=== PATIENT | female | born 1950 | race Caucasian/White ===

== ENCOUNTER 2020-08-23 05:16 | Inpatient (IN) ==
--- NOTE | 2020-08-12 09:03 | PAT Medication Instructions ---
Medication Instructions Date of Service August 12, 2020 Home Medications C,E,zinc,copper [id number] [Ocuvite Adult 50 Plus] 1 cap PO QAM acetaminophen [Tylenol Arthritis] 1,300 mg PO QAM aspirin [Aspir-81] 81 mg PO QAM calcium carbonate-vitamin D3 [Calcium 500 + D] 1 tab PO QAM cetirizine [Zyrtec] 10 mg PO QAM citalopram [Celexa] 20 mg PO QAM diphenhydramine HCl [Benadryl] 25 mg PO HS fish oil-dha-epa 1,200 cap PO QAM gabapentin 300 mg PO BID lisinopril-hydrochlorothiazide 1 tab PO QAM meloxicam 15 mg PO QAM multivitamin 1 tab PO QAM vitamin E [Vitamin E D-Alpha] 400 unit PO QAM ASK your surgeon for instructions meloxicam 15 mg PO QAM STOP taking 2 weeks before surgery If surgery is within 2 weeks, stop taking as soon as possible. C,E,zinc,copper [id number] [Ocuvite Adult 50 Plus] 1 cap PO QAM fish oil-dha-epa 1,200 cap PO QAM vitamin E [Vitamin E D-Alpha] 400 unit PO QAM DO NOT take the morning of surgery calcium carbonate-vitamin D3 [Calcium 500 + D] 1 tab PO QAM cetirizine [Zyrtec] 10 mg PO QAM lisinopril-hydrochlorothiazide 1 tab PO QAM multivitamin 1 tab PO QAM Take morning of surgery With a small sip of water, OTHERWISE NOTHING TO EAT OR DRINK AFTER MIDNIGHT: acetaminophen [Tylenol Arthritis] 1,300 mg PO QAM (if needed, may be taken up to four hours before surgery) aspirin [Aspir-81] 81 mg PO QAM citalopram [Celexa] 20 mg PO QAM gabapentin 300 mg PO BID Take evening before surgery diphenhydramine HCl [Benadryl] 25 mg PO HS gabapentin 300 mg PO BID Other Notes If you have any questions please call us at [phone] or [phone] or [phone] or [phone]
--- NOTE | 2020-08-17 10:23 | Anesthesiology Consultation ---
Date of Service August 17, 2020 Assessment & Plan (1) Encounter for pre-operative examination: Chart Review Chart Review: Acceptable Risk for Surgery (pending surgeon ordered PCP clearance and preop Covid testing ) and Patient seen in Pre Admission Testing -Awaiting surgeon ordered PCP clearance Per PAT appointment 08/17/2020, patient resides in [facility]. Travels to [facility] for medical appts. Wears proper PPE. No known Covid infection in the past 90 days. No known Covid positive contacts or Covid related symptoms. Preop Covid testing done 08/17/20 at [facility] will await results. Educated on importance of self quarantining, social distancing and wearing mask in public both for the patient and household contacts. Pt has had both Covid 19 vaccines Right direct anterior CHAD 03/28/2016 = done under [facility] at L3-4 with 1 attempt. No anesthesia issues noted per anesthesia record. Teaching & Discussion Pre-Anesthesia Teaching/Discussion Notes: Instructed NPO after midnight before surgery,except medications with 15 cc of water. Medication instructions provided according to the PAT guidelines. History Surgery Operation Date: 08/23/20 11:10 Proposed Procedures p Left Posterior Total Hip Arthroplasty - Jonathan Quiñones, Height/Weight Height: 5 ft 2.5 in Weight: 108.4 kg Allergies Allergy/AdvReac Type Severity Reaction Status Date / Time No Known Allergies Allergy Verified 08/11/20 15:38 Medications Home Medications Medication Instructions Recorded Confirmed Last Taken C,E,zinc,copper [id number] 1 cap PO QAM 04/06/20 08/11/20 Unknown [Ocuvite Adult 50 Plus] acetaminophen [Tylenol Arthritis] 1,300 mg PO QAM 04/06/20 08/11/20 Unknown aspirin [Aspir-81] 81 mg PO QAM 04/06/20 08/11/20 Unknown calcium carbonate-vitamin D3 1 tab PO QAM 04/06/20 08/11/20 Unknown [Calcium 500 + D] cetirizine [Zyrtec] 10 mg PO QAM 04/06/20 08/11/20 Unknown citalopram [Celexa] 20 mg PO QAM 04/06/20 08/11/20 Unknown diphenhydramine HCl [Benadryl] 25 mg PO HS 04/06/20 08/11/20 Unknown fish oil-dha-epa 1,200 cap PO QAM 04/06/20 08/11/20 Unknown gabapentin 300 mg PO BID 04/06/20 08/11/20 Unknown lisinopril-hydrochlorothiazide 1 tab PO QAM 04/06/20 08/11/20 Unknown meloxicam 15 mg PO QAM 04/06/20 08/11/20 Unknown multivitamin 1 tab PO QAM 04/06/20 08/11/20 Unknown vitamin E [Vitamin E D-Alpha] 400 unit PO QAM 04/06/20 08/11/20 Unknown Past Medical History Medical History Anxiety Arthritis Depression History of COVID-19 04/13/21 [facility]. symptoms: loss of taste and smell. no hospitalization. Hypertension Migraine HX Sleep apnea CPAP HS Exercise / Class Metabolic Activity II 4-5 Yardwork/Stairs/Walk up hill (ONE FLIGHT OF STAIRS - NO CHEST PAIN OR SOB ) Past Family History Family History Mother Family history of diabetes mellitus Grandfather (Paternal) Family hx of colon cancer Other No family history of adverse response to anesthesia Past Surgical History Surgical History History of ankle surgery RIGHT CYST REMOVAL History of tonsillectomy History of tooth extraction History of total hip arthroplasty RIGHT History of total knee replacement R/L Past Anesthesia History No Hx of Anesthesia Complications (with exception to mild awareness during TKAs- no issues with most recent CHAD ) and No Family Hx of Anesthesia Complications History of PONV No Hx of PONV and No Hx of Motion Sickness Social History Smoking Status: Never smoker Do You Dip or Chew Tobacco: No Hx Alcohol Use: Yes Alcohol type: beer and other alcohol intake frequency: holidays/special occasions only Hx Substance Use: No substance use type: does not use Review of Systems Patient denies chest pain, shortness of breath, dyspnea on exertion, reflux, cough, wheezing, palpitations. No hx of seizures, stroke, [place]. No hx of blood clots or blood transfusions Physical Exam Vital Signs VITALS BP 145/80 P 81 TEMP 98.5 SP02 97% RESP 16 Constitutional no acute distress ENMT Mouth: no TMJ clicking Thyromental Distance: < 3.5 Finger Breadths (3.0) Mallampati Class: III Full upper dentures Missing lower molars Neck neck extension not limited Respiratory normal respiratory effort; no respiratory distress Auscultation: lungs clear to auscultation bilaterally; no wheezes Cardiovascular Rate/Rhythm: regular rate and regular rhythm Heart Sounds: no murmur (no significant murmur noted ) Vessels: no carotid bruit Musculoskeletal Spine: no pain with cervical ROM Extremities: extremities normal to inspection Psychiatric Orientation: alert Testing Laboratory Results 08/17/20 10:56 08/17/20 10:56 PT 10.2 Seconds (9.0-12.0) 08/17/20 10:56 INR 1.0 (0.9-1.1) 08/17/20 10:56 APTT 25.9 Seconds (21.0-31.0) 08/17/20 10:56 Hemoglobin A1c 5.7 % (4.5-5.6) H 08/17/20 10:56 Urine Color Yellow 08/17/20 Unknown Urine Appearance Clear (Clear) 08/17/20 Unknown Urine pH 7.5 (4.5-7.5) 08/17/20 Unknown Ur Specific [place] 1.009 (1.000-1.030) 08/17/20 Unknown Urine Protein Negative (Negative) 08/17/20 Unknown Urine Glucose (UA) Negative (Negative) 08/17/20 Unknown Urine Ketones Negative (Negative) 08/17/20 Unknown Urine Nitrite Negative (Negative) 08/17/20 Unknown Ur Leukocyte Esterase Negative (Negative) 08/17/20 Unknown Blood Type O Positive 08/17/20 10:56 Antibody Screen NEGATIVE 08/17/20 10:56 Electrocardiogram Date: 08/17/20 Findings: + NSR @ (81bpm) Normal EKG. Chest X-Ray Date: 08/09/20 Findings: + NAD Stable small linear scarlike density at the left lung base. Otherwise, lungs are clear.
--- NOTE | 2020-08-17 11:39 | XRay Report ---
XR chest Pre-admission PA/Lat HISTORY: Preop. COMPARISON: Chest 12/15/2013. FINDINGS: Cardiac silhouette is normal in size. No pleural effusions. No pneumothorax. Stable small l inear scarlike density at the left lung base. Otherwise, lungs are clear. IMPRESSION: No acute process. ACT 112: Negative or not required by law. Electronically signed by: Seymour Tejada M.D. 08/17/2020 11:38 AM
[2020-08-17 11:41] LABS: Basophils # (auto) 0.04 K/uL (0-0.2); Basophils % (auto) 0.5 %; Eosinophils % (auto) 1.2 %; Hematocrit (blood only) 35.2 % (37-47); Hemoglobin 11.6 g/dL (12.0-16.0); Lymphocytes % (auto) 20.7 %; Mean Platelet Volume 9.7 fL (7.4-10.4); Monocytes # (auto) 0.43 K/uL (0.11-0.59); Monocytes % (auto) 5.2 %; Neutrophils # (auto) 5.94 K/uL (1.4-6.5); Neutrophils % (auto) 72.4 %; Platelet Count 237 K/uL (130-400); RDW Coefficient of Variation 13.4 % (11.5-14.5); RDW Standard Deviation 43.5 fL (36.4-46.3); White Blood Count 8.21 K/uL (4.8-10.8)
[2020-08-17 11:45] LABS: Appearance Urine Clear (Clear); Bilirubin Urine Negative (Negative); Blood Urine Negative (Negative); Color Urine Yellow; Glucose Urine UA Negative (Negative); Ketones Urine Negative (Negative); Leukocyte Esterase Urine Negative (Negative); Nitrite Urine Negative (Negative); Protein Urine Negative (Negative); Specific Gravity Urine 1.009 (1.000-1.030); Urobilinogen Urine Negative (Negative); pH Urine 7.5 (4.5-7.5)
[2020-08-17 11:52] LABS: Partial Thromboplastin Time 25.9 Seconds (21.0-31.0); Prothrombin Time 10.2 Seconds (9.0-12.0)
[2020-08-17 12:10] LABS: Albumin Level 3.5 gm/dl (3.4-5.0); BUN Creatinine Ratio 16.6 (10-20); Calcium 10.1 mg/dl (8.5-10.1); Creatinine Clr Calc Pharmacy 76.7 ml/min; Est GFR (African American) 85.9; Est GFR (Non-African American) 74.1; Potassium 4.1 mmol/L (3.5-5.1)
[2020-08-17 12:36] LABS: Estimated Average Glucose 117 mg/dl; Hemoglobin A1C 5.7 % (4.5-5.6)
--- NOTE | 2020-08-18 06:17 | Electrocardiogram Report ---
Test Reason : Blood Pressure : / mmHG Vent. Rate : 081 BPM Atrial Rate : 081 BPM P-R Int : 184 ms QRS Dur : 074 ms QT Int : 360 ms P-R-T Axes : 073 064 066 degrees QTc Int : 418 ms Normal sinus rhythm Normal ECG When compared with ECG of 09-MAR-2016 14:27, No significant change was found Confirmed by Calderon Tovar ([id number]) on 08/18/2020 6:16:50 AM Referred By: Jonathan Quiñones Confirmed By:Calderon Tovar
--- NOTE | 2020-08-21 21:09 | History & Physical Report ---
Date of Service August 23, 2020 Assessment & Plan (1) Degenerative joint disease of left hip: I have indicated the patient for left total hip replacement. The risks, benefits and complications of surgery were explained to the patient which include but not limited to infection, acute blood loss, DVT/PE, injury to nerves, vessels, bone, soft tissue, arthrofibrosis, chronic pain, failure of the prosthesis, hip dislocation, leg length discrepancy, need for additional surgery, cardiac and pulmonary events and . The patient wished to proceed with surgery and informed consent was obtained at this time. We will plan for 81mg BID post-operatively for DVT prophylaxis. Upon discharge the patient will be discharged home with home health services. Appropriate clearances by PCP were obtained. (2) Morbid obesity: History of Present Illness Chief Complaint: Left hip pain/DJD Primary Care Provider: Cheri Fuentes DO The patient is a 70 year old female who presents with complaints of severe left hip pain and DJD. The patient has failed outpatient conservative treatments to this point which included NSAIDs, IA steroid injection, home exercise/walking program. The patient's pain and limited function have progressed to the point where they severely hinder their activities of daily living and they no longer tolerate exercise programs. They are requesting to proceed with total hip replacement surgery. Allergies Allergy/AdvReac Type Severity Reaction Status Date / Time No Known Allergies Allergy Verified 08/23/20 05:44 Home Medications Medication Instructions Recorded Confirmed Type C,E,zinc,copper [id number] 1 cap PO QAM 04/06/20 08/23/20 History [Ocuvite Adult 50 Plus] acetaminophen [Tylenol Arthritis] 1,300 mg PO QAM 04/06/20 08/23/20 History aspirin [Aspir-81] 81 mg PO QAM 04/06/20 08/23/20 History calcium carbonate-vitamin D3 1 tab PO QAM 04/06/20 08/23/20 History [Calcium 500 + D] cetirizine [Zyrtec] 10 mg PO QAM 04/06/20 08/23/20 History citalopram [Celexa] 20 mg PO QAM 04/06/20 08/23/20 History diphenhydramine HCl [Benadryl] 25 mg PO HS 04/06/20 08/23/20 History fish oil-dha-epa 1,200 cap PO QAM 04/06/20 08/23/20 History gabapentin 300 mg PO BID 04/06/20 08/23/20 History lisinopril-hydrochlorothiazide 1 tab PO QAM 04/06/20 08/23/20 History meloxicam 15 mg PO QAM 04/06/20 08/23/20 History multivitamin 1 tab PO QAM 04/06/20 08/23/20 History vitamin E [Vitamin E D-Alpha] 400 unit PO QAM 04/06/20 08/23/20 History Past Med/Surg History Medical History Anxiety Arthritis Depression History of COVID-19 04/13/21 [facility]. symptoms: loss of taste and smell. no hospitalization. Hyperlipidemia Per records Hypertension Migraine HX Morbid obesity Sleep apnea CPAP HS Surgical History History of ankle surgery RIGHT CYST REMOVAL History of tonsillectomy History of tooth extraction History of total hip arthroplasty RIGHT History of total knee replacement R/L Family History Mother Family history of diabetes mellitus Grandfather (Paternal) Family hx of colon cancer Other No family history of adverse response to anesthesia Social History Smoking Status: Never smoker Second Hand Exposure: Yes (FATHER SMOKED); Do You Dip or Chew Tobacco: No; Tobacco Cessation Education Requested by Patient: No Hx Alcohol Use: Yes Alcohol type: beer and other Hx Substance Use: No Preferred Language: Hebrew Communication Ability: Effective Shift Manager Required: No Beliefs That Will Affect Care: None Current Living Situation: Spouse and Family Other Information That Helps Us Care for You: No Feels Safe at Home: Yes Safety Concerns: Feels Safe At This Time Assistive Devices: Cane, CPAP, Denture - Upper and Glasses Assistive Devices Comment: cane prn Review of Systems Review of Systems: All systems reviewed & are unremarkable except as noted in HPI & below Constitutional: as per Subjective / HPI Physical Exam Physical Exam: LLE NVSI +EHL/FHL/TA/GS SILT grossly, +2 DP pulse, compartments soft NT, limited painful ROM, antalgic gait. Constitutional: WD/WN, vitals as above Eyes: PERRL, conjunctivae normal, anicteric sclerae ENMT: external ear and nose normal, oropharynx normal Neck: trachea midline, no thyromegaly Respiratory: normal respiratory effort, lungs clear to auscultation Cardiovascular: RRR, no murmur, no edema Gastrointestinal (Abdomen): normal bowel sounds, soft, nontender, no hepatosplenomegaly Musculoskeletal: no cyanosis or clubbing, extremities motor strength 5/5 Skin: no rashes, warm and dry Neurologic: patellar DTR's 2+ bilat, sensation intact Psychiatric: A+Ox3, euthymic affect Lymphatic: no cervical or axillary lymphadenopathy Results & Data Results & Data ([facility]) Diagnostic Findings Multiple views of the hip demonstrates severe DJD with complete loss of the joint space. +osteophytes, +sclerosis, +subchondral cysts. Pre Admission Testing Addendum Laboratory Results 08/17/20 10:56 08/17/20 10:56 PT 10.2 Seconds (9.0-12.0) 08/17/20 10:56 INR 1.0 (0.9-1.1) 08/17/20 10:56 APTT 25.9 Seconds (21.0-31.0) 08/17/20 10:56 Hemoglobin A1c 5.7 % (4.5-5.6) H 08/17/20 10:56 Urine Color Yellow 08/17/20 Unknown Urine Appearance Clear (Clear) 08/17/20 Unknown Urine pH 7.5 (4.5-7.5) 08/17/20 Unknown Ur Specific [place] 1.009 (1.000-1.030) 08/17/20 Unknown Urine Protein Negative (Negative) 08/17/20 Unknown Urine Glucose (UA) Negative (Negative) 08/17/20 Unknown Urine Ketones Negative (Negative) 08/17/20 Unknown Urine Nitrite Negative (Negative) 08/17/20 Unknown Ur Leukocyte Esterase Negative (Negative) 08/17/20 Unknown Blood Type O Positive 08/17/20 10:56 Antibody Screen NEGATIVE 08/17/20 10:56 08/17/20 Unknown Urine Culture - Final Urine,Clean Catch More than three types of organisms present, all low counts mixed probable skin sejal. No further identifications or sensitivities to follow.
[2020-08-23] MEDS ORDERED: METOCLOPRAMIDE HCL 10 MG TABLET PO SCH (06:00)
[2020-08-23] MEDS ORDERED: TRANEXAMIC ACID 1,000 MG **IV Intra-op IV SCH (06:00)
[2020-08-23] MEDS ORDERED: FAMOTIDINE 20 MG TAB PO SCH (06:00)
[2020-08-23] MEDS ORDERED: ROPIVACAINE 0.5% HCL/PF 150 MG, BUPIVACAINE 0.75% MPF 20 ML, EPINEPHrine 30MG/30ML (OR ... INFIL SCH ×2 (06:00)
[2020-08-23] MEDS ORDERED: TRANEXAMIC ACID 1,000 MG **IV Pre-op IV SCH (06:00)
[2020-08-23] MEDS ORDERED: ACETAMINOPHEN 500 MG TAB PO SCH (06:00)
[2020-08-23] MEDS ORDERED: LR 500ML BOLUS, THEN 15ML/HR IV SCH (06:00)
[2020-08-23] MEDS ORDERED: ceFAZolin 2000MG 2,000 MG/15 ML SYR IV SCH (06:00)
[2020-08-23] MEDS ORDERED: dexAMETHasone 4 MG TAB PO SCH (06:00)
[2020-08-23] MEDS ORDERED: CeleBREX 200 MG CAP PO SCH ×2 (06:00→21:00)
[2020-08-23] MEDS ORDERED: fentaNYL citrate 100 MCG/2 ML VIAL ONE (06:24)
[2020-08-23] MEDS ORDERED: MIDAZOLAM HCL 1 MG/ML 2ML VIAL ONE ×2 (06:24)
[2020-08-23] MEDS ORDERED: SUCCINYLCHOLINE 100MG/5ML SYR IV ONE (06:28)
[2020-08-23] MEDS ORDERED: ORTHO JOINT ANESTHETIC ONE (06:39)
[2020-08-23] MEDS ORDERED: BACITRACIN INJ 50,000 UNIT VIAL ONE (06:39)
[2020-08-23] MEDS ORDERED: BUPIVACAINE 0.5 % 5 MG/1 ML PF 10ML VIAL ONE (06:44)
--- NOTE | 2020-08-23 06:45 | History & Physical Bridge Note ---
Date of Service August 23, 2020 History & Physical Bridge Note I have examined the patient, reviewed the History & Physical and in the interval since the performance of the History & Physical I have noted the following changes of clinical significance: no changes noted
[2020-08-23] MEDS ORDERED: HYDROmorphone INJ 1 MG/ML SYRINGE IV PRN (07:12)
[2020-08-23] MEDS ORDERED: fentaNYL citrate 100 MCG/2 ML VIAL IV PRN (07:12)
[2020-08-23] MEDS ORDERED: ATROPINE SULFATE 0.1 MG/ML 10ML SYR IV PRN (07:12)
[2020-08-23] MEDS ORDERED: LABETALOL HCL IV 5 MG/ML 20ML IV PRN (07:12)
[2020-08-23] MEDS ORDERED: PHENYLEPHRINE 100MCG/ML 5ML SYR IV PRN (07:12)
[2020-08-23] MEDS ORDERED: ONDANSETRON INJ 2 MG/ML 2 ML VIAL IV PRN ×2 (07:12→10:09)
[2020-08-23] MEDS ORDERED: ePHEDrine sulfate 50 MG/ML AMP IV PRN (07:12)
[2020-08-23] MEDS ORDERED: PROPOFOL IV EMULSION 10 MG/ML 20 ML VIAL IV ONE ×3 (07:24→08:02)
[2020-08-23] MEDS ORDERED: PHENYLEPHRINE HCL 10 MG/ML VIAL ONE (07:30)
--- NOTE | 2020-08-23 09:03 | Post Operative Brief Note ---
Immediate Post Op Note v1 Date of Surgery August 23, 2020 Pre & Post Diagnosis Operation Date: 08/23/20 07:00 Pre-Op Diagnosis: Unilateral Primary Osteoarthritis, Left Hip Post-Op Diagnosis: Unilateral Primary Osteoarthritis, Left Hip I identified the patient and participated in the time-out.: Yes Procedure Operation Date: 08/23/20 07:00 Actual Procedures p Left Posterior Total Hip Arthroplasty(Left) - Jonathan Quiñones DO Surgeon Jonathan Quiñones DO Oceanology Teacher Ruy Dunlap Estimated Blood Loss 170 Findings Consistent with Post-Op Diagnosis Fluids see anesthesia report Specimens femoral head Anesthesia Type Spinal MAC Complications none Disposition Disposition: Recovery Room Overlapping Procedure I was present for: the critical portions of procedure. I was immediately available: during the entire case. Back up surgeon: was not required during procedure.
--- NOTE | 2020-08-23 09:06 | Operative Report ---
Post Operative Report Pre & Post Diagnosis Operation Date: 08/23/20 07:00 Pre-Op Diagnosis: Unilateral Primary Osteoarthritis, Left Hip Post-Op Diagnosis: Unilateral Primary Osteoarthritis, Left Hip I identified the patient and participated in the time-out.: Yes Procedure Operation Date: 08/23/20 07:00 Actual Procedures p Left Posterior Total Hip Arthroplasty(Left) - Jonathan Quiñones DO Surgeon Jonathan Quiñones DO Physician Relations Representative Ruy Dunlap Estimated Blood Loss 170 Findings Consistent with Post-Op Diagnosis Specimens femoral head Anesthesia Type Spinal MAC Complications none Disposition Disposition: Recovery Room Indications The patient is a 70-year-old female who presents with severe progressive left hip DJD who has failed outpatient conservative treatments. I indicated the patient for a total hip replacement and the risks and benefits were explained in detail which included but not limited to infection, bleeding, blood clot, damage to surrounding bone, nerves, vessels, soft tissue, hip dislocation, failure of the prosthesis, leg length discrepancy, need for additional surgery and . The patient agreed to proceed with replacement of the hip and informed consent was obtained. Appropriate clearances were obtained. Description of Procedure COMPONENTS USED: [employer] hip system: Acetabulum size 50 G7 osteo-Ti, femur size 13.5 standard offset, femoral head 36-3.5, liner 50x36 high wall, acetabular screws measuring 25 mm and 30 mm. Following induction of adequate spinal anesthesia, the patient was transferred to the OR table and placed in lateral decubitus position with right hip down. The left hip was prepped and draped in the typical sterile fashion. A timeout was performed, patient identified and site chris confirmed. Appropriate a ntibiotics were given. A standard posterolateral/Pierre-Langenbeck incision was made. Subcutaneous tissue was sharply dissected. Electrocautery was utilized for hemostasis. The fascia was incised throughout the length of the wound and retracted with the Charnley retractor. The bursa was taken down and the short external rotators were identified. The piriformis was tagged with #1 Vicryl. The short external rotators and capsule were divided from the posterior aspect of the femur using electrocautery. The posterior capsule was tagged with #1 Vicryl. Both external rotators and posterior capsule were swept posterior and protected, along with protecting the sciatic nerve. The hip was dislocated by flexion and internally rotation in a controlled manner and exposure of the femoral neck was gained with an old-style Hohmann and a blunt cobra retractor. A femoral cutting guide was utilized for making the appropriate level femoral neck cut with reciprocating saw. The femoral head was removed, measured and reserved on the back table. Next, attention was turned to the acetabulum. A posterior and anterior offset retractor was placed to gain adequate exposure. Acetabular labrum as well as posterior capsule elements were removed using electrocautery and forceps. Fovea centralis was cleared of all soft tissue. Sequential reaming was performed starting at 44 mm and carried up to a 49 mm and decision was made to proceed with impaction of a 50 mm G7 Osteo-Ti cup. This was impacted and held using a single 25 mm and 30 mm acetabular screws. The trial acetabular liner was placed at this time. Next, attention was turned to the proximal femur where a Bovie and pickup was used to further clear short external rotators from their insertion on the femur. Box osteotome and canal finder was used to gain access to the femoral canal and the lateral reamer on power was used to further open the proximal lateral canal. Sequentially rasping was carried up to a 13.5 which gave good fit and fill of the proximal femur. A trial reduction was carried out with a 13.5 standard offset femoral neck component a 36-3.5 mm femoral head. The trial reduction was stable in all degrees of rotation with no [id number] impingement. The hip was dislocated, trial components were removed and access to the acetabulum was re-established. The trial liner was removed and the cup was irrigated to ensure all debris was removed. The final acetabular liner was inserted and properly seated in the cup. Access to the femur was once more gained and the size 13.5 femoral stem with standard offset was impacted into position. The hip was once more assessed with the 36-3.5 mm femoral head. Stability was accessed and found to be excellent with equal leg lengths. The hip was dislocated for the last time and the final 36-3.5 ceramic femoral head was impacted in place and the hip was reduced. Range of motion was checked once again and found to be stable. A Betadine soak was performed. After 3 minutes, the hip was once more irrigated with copious sterile saline solution with bacitracin. The kacie-incisional soft tissue was injected utilizing [place] ortho mix which includes a combination of Ropivicaine 0.5% 150mg, Bupivicaine 0.5%/Epinephrine 1:200,000 30ml, Toradol 30mg, Dexamethasone 4mg, Ketamine 10mg, Clonidine 100mcg and NSS 30ml Orthomix solution. The piriformis, external rotators and capsule were repaired to the greater trochanter through bone tunnels using #5 FiberWire. The fascia was closed using #1 Vicryl, subcutaneous tissue was closed using 2-0 Vicryl, and skin was closed with vale and a sterile dry dressing was applied which included sam incisional VAC. The patient tolerated the procedure well and was transported to PACU in stable condition. Due to the complex nature of the procedure, the entire surgery was performed with the operational assistance of Ruy Dunlap PA-C. The public aid eligibility assistant, under direct supervision, was involved in the actual performance of all aspects of the surgical procedure including patient positioning, hemostasis, tissue retraction, instrument management and wound closure. I attest to the content of the Intraoperative Record and any orders documented therein. Any exceptions are noted below.
--- NOTE | 2020-08-23 09:50 | Anesthesiology Progress Note ---
Date of Service August 23, 2020 Anesthesia Post Procedure Vital Signs Vital Signs: Temp Pulse Pulse Resp BP Pulse Ox 08/23/20 09:45 86 16 120/71 96 08/23/20 09:35 88 19 124/71 96 08/23/20 09:25 36.8 C 92 H 14 138/63 96 08/23/20 05:49 36.9 C 93 H 16 168/103 H 98 Transfer of Care Handoff Completed per policy Notes Mental Status: alert / awake / arousable Patient Amnestic to Procedure: Yes Nausea / Vomiting: adequately controlled Pain: adequately controlled Airway Patency, RR, SpO2: stable & adequate BP & HR: stable & adequate Hydration State: stable & adequate Anesthetic Complications: no major complications apparent and Pt Satisfied with anesthetic care
--- NOTE | 2020-08-23 09:51 | Anesthesiology Progress Note ---
Date of Service August 23, 2020 Anesthesia Post Procedure Vital Signs Vital Signs: Temp Pulse Pulse Resp BP Pulse Ox 08/23/20 09:45 86 16 120/71 96 08/23/20 09:35 88 19 124/71 96 08/23/20 09:25 36.8 C 92 H 14 138/63 96 08/23/20 05:49 36.9 C 93 H 16 168/103 H 98 Transfer of Care Handoff Completed per policy Notes Mental Status: alert / awake / arousable Patient Amnestic to Procedure: Yes Nausea / Vomiting: adequately controlled Pain: adequately controlled Airway Patency, RR, SpO2: stable & adequate BP & HR: stable & adequate Hydration State: stable & adequate Neuraxial Anesthesia: was administered and sensory block is resolving Anesthetic Complications: no major complications apparent and Pt Satisfied with anesthetic care
--- NOTE | 2020-08-23 09:57 | XRay Report ---
AP PELVIS, CROSSTABLE LATERAL LEFT HIP History: Left total hip arthroplasty. Degenerative arthritis. Postop. FINDINGS: The patient is status post a left total hip arthroplasty. The hardware is intact. No fractu re or dislocation. Skin vale are in place. Evidence for prior right total hip arthroplasty. IMPRESSION: Left total hip arthroplasty. No evidence for hardware complication. ACT 112: Negative or not required by law. Electronically signed by: Seymour Tejada M.D. 08/23/2020 9:56 AM
[2020-08-23] MEDS ORDERED: HYDROmorphone INJ 0.5 MG/0.5 ML SYR IV PRN (10:09)
[2020-08-23] MEDS ORDERED: MAGNESIUM HYDROXIDE SUSP 30 ML UDC PO PRN (10:09)
[2020-08-23] MEDS ORDERED: NALOXONE HCL 0.4 MG/1 ML VIAL/CARP IV PRN (10:09)
[2020-08-23] MEDS ORDERED: METOCLOPRAMIDE HCL INJ 5 MG/ML 2 ML VIAL IV PRN (10:09)
[2020-08-23] MEDS ORDERED: diphenhydrAMINE Capsule 25 MG CAP PO PRN (10:09)
[2020-08-23] MEDS ORDERED: bisacodyL 10 MG SUPP PR PRN (10:09)
[2020-08-23] MEDS ORDERED: PNEUMOCOCCAL ADMINISTRATION CHARGE ONE (10:14)
[2020-08-23] MEDS ORDERED: PNEUMOCOCCAL POLYSACCHARIDES 25 MCG/0.5 ML VIAL/SYR IM ONE (10:14)
[2020-08-23] MEDS: KETOROLAC TROMETHAMINE 15 MG/ML VIAL IV SCH ×3 (11:46→22:29)
[2020-08-23] MEDS: ACETAMINOPHEN 500 MG TAB PO SCH ×2 (14:16→22:27)
[2020-08-23] MEDS: SODIUM CHLORIDE 0.9% 1000ML 1,000 ML IV SCH ×2 (15:31→18:35)
[2020-08-23] MEDS: ceFAZolin 2000MG 2,000 MG/15 ML SYR IV SCH ×2 (15:59→22:27)
--- NOTE | 2020-08-23 16:59 | Orthopedic Progress Note ---
Date of Service August 23, 2020 Assessment & Plan (1) Degenerative joint disease of left hip: Status post left total hip arthroplasty Ancef x24 DVT prophylaxis: SCDs, teds, 81 mg ASA twice daily Weight-bear as tolerates left lower extremity PT/OT Postoperative x-ray demonstrates well aligned well fixed prosthesis without fracture or dislocation A.m. labs DC planning (2) Morbid obesity: Admission and Anticipated Discharge Date Admission Date: August 23, 2020 Subjective Post Operative Progress Note Patient seen sitting up in bed, comfortable, denies complaints, pain well controlled, no acute issues. Review of Systems Review of Systems: All systems reviewed & are unremarkable except as noted in HPI & below Constitutional: as per Subjective / HPI Physical Exam Physical Exam: LLE NVSI +EHL/FHL/TA/GS SILT grossly, +2 DP pulse, compartments soft NT, dressing cdi. Constitutional: WD/WN, vitals as above Results & Data ([place]) Vital Signs (Past 12 Hours) Vital Signs Temp Pulse Pulse Resp BP BP Pulse Ox 08/23/20 14:00 36.7 C 81 16 134/74 95 08/23/20 13:39 36.6 C 83 16 155/69 H 97 08/23/20 12:20 88 16 165/72 H 98 08/23/20 11:51 36.6 C 82 16 135/78 99 08/23/20 10:35 77 16 120/78 96 08/23/20 10:05 36.5 C 86 18 146/75 H 97 08/23/20 09:55 36.6 C 85 15 136/66 96 08/23/20 09:45 86 16 120/71 96 08/23/20 09:35 88 19 124/71 96 08/23/20 09:25 36.8 C 92 H 14 138/63 96 08/23/20 05:49 36.9 C 93 H 16 168/103 H 98
[2020-08-23] MEDS ORDERED: SENNA 8.6 MG TAB PO SCH (21:00)
[2020-08-23] MEDS: GABAPENTIN 300 MG CAP PO SCH (22:28)
[2020-08-23] MEDS: DOCUSATE SODIUM 100 MG CAP PO SCH (22:29)
[2020-08-24] MEDS: KETOROLAC TROMETHAMINE 15 MG/ML VIAL IV SCH (05:46)
[2020-08-24] MEDS: ACETAMINOPHEN 500 MG TAB PO SCH ×2 (05:47→15:12)
[2020-08-24 07:13] LABS: Basophils # (auto) 0.01 K/uL (0-0.2); Basophils % (auto) 0.1 %; Hematocrit (blood only) 33.8 % (37-47); Hemoglobin 11.3 g/dL (12.0-16.0); Immature Granulocytes # (auto) 0.02 K/uL (0.00-0.02); Immature Granulocytes % (auto) 0.1 %; Lymphocytes # (auto) 1.85 K/uL (1.2-3.4); Lymphocytes % (auto) 12.5 %; Mean Corpuscular Hgb Conc 33.4 g/dL (32-36); Mean Corpuscular Volume 86.9 fL (80-100); Mean Platelet Volume 9.9 fL (7.4-10.4); Monocytes % (auto) 7.4 %; Neutrophils # (auto) 11.82 K/uL (1.4-6.5); Neutrophils % (auto) 79.9 %; Platelet Count 278 K/uL (130-400); RDW Coefficient of Variation 13.4 % (11.5-14.5); RDW Standard Deviation 42.9 fL (36.4-46.3); Red Blood Count 3.89 M/uL (4.2-5.4)
[2020-08-24 08:00] LABS: BUN Creatinine Ratio 22.2 (10-20); Calcium 9.2 mg/dl (8.5-10.1); Creatinine Clr Calc Pharmacy 65.9 ml/min; Est GFR (African American) 73.6; Est GFR (Non-African American) 63.5; Potassium 3.6 mmol/L (3.5-5.1)
[2020-08-24] MEDS: oxyCODONE HCL IR 5 MG TAB (IMMEDIATE RELEASE) PO PRN ×2 (08:24→15:11)
[2020-08-24] MEDS: GABAPENTIN 300 MG CAP PO SCH (08:24)
[2020-08-24] MEDS: DOCUSATE SODIUM 100 MG CAP PO SCH (08:25)
[2020-08-24] MEDS ORDERED: MULTIVITAMIN TAB PO SCH (09:00)
[2020-08-24] MEDS ORDERED: LISINOPRIL/HCTZ 20/25MG 1 TAB PO SCH (09:00)
[2020-08-24] MEDS ORDERED: CITALOPRAM 20 MG TAB PO SCH (09:00)
[2020-08-24] MEDS ORDERED: ASPIRIN 81 MG ECTAB PO SCH (09:00)
[2020-08-24] MEDS ORDERED: CeleBREX 200 MG CAP PO SCH (09:00)
--- NOTE | 2020-08-24 09:09 | Orthopedic Progress Note ---
Date of Service August 24, 2020 Assessment & Plan (1) Degenerative joint disease of left hip: Status post left total hip arthroplasty POD#1 Ancef x24 DVT prophylaxis: SCDs, teds, 81 mg ASA twice daily Weight-bear as tolerates left lower extremity PT/OT Postoperative x-ray demonstrates well aligned well fixed prosthesis without fracture or dislocation A.m. labs - as above, hgb 11.3 DC planning - home with HH (2) Morbid obesity: Admission and Anticipated Discharge Date Admission Date: August 23, 2020 Subjective Post Operative Progress Note Patient seen sitting in chair at bedside, comfortable, denies complaints, pain well controlled, no acute issues. Denies F/C/N/V/SOB/CP. Review of Systems Review of Systems: All systems reviewed & are unremarkable except as noted in HPI & below Constitutional: as per Subjective / HPI Physical Exam Physical Exam: LLE NVSI +EHL/FHL/TA/GS SILT grossly, +2 DP pulse, compartments soft NT, dressing cdi. Constitutional: WD/WN, vitals as above Results & Data ([facility]) Vital Signs (Past 12 Hours) Vital Signs Temp Pulse Resp BP BP Pulse Ox 08/24/20 07:16 36.7 C 73 16 142/80 H 99 08/24/20 02:46 36.6 C 87 16 162/78 H 99 08/23/20 23:10 36.8 C 80 16 133/77 96 Laboratory Results 08/24/20 08/24/20 Range/Units 06:15 06:15 WBC 14.80 H (4.8-10.8) K/uL RBC 3.89 L (4.2-5.4) M/uL Hgb 11.3 L (12.0-16.0) g/dL Hct 33.8 L (37-47) % MCV 86.9 (80-100) fL MCH 29.0 (25-34) pg MCHC 33.4 (32-36) g/dL RDW Std Deviation 42.9 (36.4-46.3) fL RDW Coeff of Isa 13.4 (11.5-14.5) % Plt Count 278 (130-400) K/uL MPV 9.9 (7.4-10.4) fL Immature Gran % (Auto) 0.1 % Neut % (Auto) 79.9 % Lymph % (Auto) 12.5 % [place] % (Auto) 7.4 % Eos % (Auto) 0.0 % Baso % (Auto) 0.1 % Neut # (Auto) 11.82 H (1.4-6.5) K/uL Lymph # (Auto) 1.85 (1.2-3.4) K/uL [place] # (Auto) 1.10 H (0.11-0.59) K/uL Eos # (Auto) 0.00 (0-0.5) K/uL Baso # (Auto) 0.01 (0-0.2) K/uL Immature Gran # (Auto) 0.02 (0.00-0.02) K/uL Sodium 138 (136-145) mmol/L Potassium 3.6 (3.5-5.1) mmol/L Chloride 105 (98-107) mmol/L Carbon Dioxide 26 (21-32) mmol/L Anion Gap 7.0 (3-11) BUN 21 H (7-18) mg/dl Creatinine 0.92 (0.6-1.2) mg/dl Est Cr Clr Drug Dosing 65.9 ml/min Est GFR ( Amer) 73.6 Est GFR (Non-Af Amer) 63.5 BUN/Creatinine Ratio 22.2 H (10-20) Glucose 106 H (70-99) mg/dl Calcium 9.2 (8.5-10.1) mg/dl
--- NOTE | 2020-08-24 17:16 | Discharge Summary ---
Date of Service August 24, 2020 Admission HPI Per Admitting Provider The patient is a 70 year old female who presents with complaints of severe left hip pain and DJD. The patient has failed outpatient conservative treatments to this point which included NSAIDs, IA steroid injection, home exercise/walking program. The patient's pain and limited function have progressed to the point where they severely hinder their activities of daily living and they no longer tolerate exercise programs. They are requesting to proceed with total hip replacement surgery. Principal Diagnosis Left total hip replacement -Left hip DJD Discharge Exam LLE NVSI +EHL/FHL/TA/GS SILT grossly, +2 DP pulse, compartments soft NT, dressing cdi. Constitutional WD/WN, vitals as above Discharge Data Allergies Allergy/AdvReac Type Severity Reaction Status Date / Time No Known Allergies Allergy Verified 08/23/20 05:44 Procedures Performed Operation Date: 08/23/20 07:00 Actual Procedures p Left Posterior Total Hip Arthroplasty(Left) - Jonathan Quiñones DO Hospital Course (1) Degenerative joint disease of left hip: The patient is a 70 -year-old female who presents with long standing history of severe left hip DJD and failed outpatient conservative treatments. The patient's symptoms have progressed to the point where it has been difficult to perform even normal activities of daily living. I indicated the patient for a left total hip arthroplasty, the risks, benefits and complications of the procedure include but not limited to infection, bleeding, damage to bone, nerves, vessels, surrounding soft tissue, may develop blood clots, loss of function, leg length discrepancy, dislocation, failure of the components, loosening of the components, the need for additional surgery and . The patient wished to proceed with surgery at this time and informed consent was obtained. Hospital Course: On 08/23/20 the patient was taken to the operating room, adequate anesthesia administered and underwent a left total hip arthroplasty. The patient tolerated the procedure well and was taken to the PACU in stable condition. Post- operatively the patient was started on a DVT ppx medication and given appropriate IV antibiotics. Consults were placed to physical therapy, occupational therapy and case management. On POD#1, the patient did well overnight and their pain was well controlled. Labs were drawn and the Hgb was 11.3. The patient progressed well with PT. The patients hospital stay was relatively uneventful and they were deemed stable by the orthopedic team and consultants to be discharged home with on 08/24/20. Discharge Instructions: Upon discharge the patient may weight bear as tolerates through their operative extremity. They were instructed to keep the incision clean and dry at all times. The patient may shower but should not submerge the incision, avoid bathing, pools and hot tubs. The patient was given a script for pain medication and should take as instructed. The patient was given a script for DVT ppx [ ] and should take as directed. The patient was instructed to not drive or travel for long distances until cleared to do so. If the patient develops any symptoms of fevers, chills, nausea, vomiting, increased redness, swelling, pain or drainage from the surgical site, they should notify the office and/or proceed to the nearest emergency room. The patient should follow up in 10-14 days after surgery for their routine post-operative follow-up appointment and should call the office, to confirm the date and time. Status post left total hip arthroplasty POD#1 Ancef x24 DVT prophylaxis: SCDs, teds, 81 mg ASA twice daily Weight-bear as tolerates left lower extremity PT/OT Postoperative x-ray demonstrates well aligned well fixed prosthesis without fracture or dislocation A.m. labs - as above, hgb 11.3 DC planning - home with HH (2) Morbid obesity: Total Time Total Time Spent Total Time Spent (In Minutes): 30 Discharge Plan Discharge Items Patient Disposition: Home - Home Health Services Reason For Visit: Unilateral Primary Osteoarthritis, Left Hip Discharge Diagnosis: Left total hip replacement Condition on Discharge: Good Activity: Per Instructions section Lifting: Wait until after follow-up appointment Bathing: Keep incision dry Bathing Comment: No bathing, pools or hot tubs. Sexual Activity: Wait until after follow-up appointment Exercise/Sports: Wait until after follow-up appointment Driving/Machine Use: No driving Weightbearing: Full weightbearing Non-emergency contact: Primary Care Provider and Surgeon Call non-emergency contact if: you have any medication questions, your symptoms worsen, your pain is not controlled, your pain is worsening, your pain is unusual for you, your pain is concerning for you, you have a fever, your temperature is above 101, your wound has increased redness, your wound has increased drainage and your wound pain has increased Follow-up/Referrals: Cheri Fuentes DO [Primary Care Provider] - Diet: Regular Addtl Attending Provider Instructions: ACTIVITY RECOMMENDATIONS: SELF CARE INSTRUCTIONS AFTER TOTAL HIP REPLACEMENT Until the incision and soft tissues around your hip have healed, there is a possibility that the hip prosthesis could dislocate. A. Observe the following precautions to prevent dislocation: 1. Don't bend your hip greater than 90 degrees. 2. Avoid crossing your legs or ankles while standing or lying. 3. Sit with your feet placed 6 inches apart. 4. When sitting, keep your knees below your hips. Sit on a firm surface, avoid deep, soft chairs and couches. Use an elevated toilet seat in the bathroom. 5. Don't bend over at the waist. Use a long handled shoehorn and a sock aid to help you put on your shoes and socks. A volunteer manager can help you pickle sorter objects that are too high or too low to reach. 6. Keep car riding to a minimum for at least one month after surgery. B. Your balance may be shaky for a while. Use crutches or a walker until directed by your doctor. C. Use hand rails when walking on stairs. D. Wear low heeled shoes with non-slip soles. E. Be sure that your floors are free of things that could trip you - throw rugs, electrical cords, small objects. Avoid wet and waxed floors, especially with crutches and canes. F. Try to walk several times a day with rest periods between. G. Continue with all the exercises taught to you in the hospital. Again, make walking a part of your daily routine. SPECIAL CARE INSTRUCTIONS: VERY IMPORTANT TO READ AND REVIEW A. You may still be at risk for phlebitis and blood clots. 1. Wear surgical stockings (JUDITH hose) for 2 weeks after surgery to improve circulation and reduce swelling. 2. Take Aspirin 81mg twice daily for 4 weeks or as directed by your doctor. This is your blood thinner. 3. High risk patients may be prescribed a stronger blood thinner if necessary. 4. If you are on Coumadin normally, your family doctor/zoo keeper should monitor your blood work. Expect a phone call the day of or the day after bloodwork is drawn to adjust your dosage. B. You must take antibiotics before having dental work, bladder, bowel and other surgery. Your doctor will provide you with a permanent card to carry describing precautions. C. Call [facility] if you have a fever, redness or swelling around the incision, cloudy drainage from incision, or sudden increase in pain in your hip, not relieved by your regular pain medication. D. Please call the office at if you have any concerns or questions about your operation or recovery. * YOU MAY SHOWER, NO TUB BATHS UNTIL CLEARED BY YOUR DOCTOR. * WEAR JUDITH HOSE 20 HOURS PER DAY FOR 2 WEEKS. * YOU SHOULD USE A WALKER OR CRUTCHES FOR 2-4 WEEKS. THIS WILL HELP PREVENT STRAIN ON YOUR HIP MUSCLE AND ALLOW IT TO HEAL PROPERLY. YOU MAY WEAN TO A CANE TOLERATED. * MOST PATIENTS WILL HAVE HOME NURSING FOR THERAPY. IF YOU DECIDE TO DO OUTPATIENT PHYSICAL THERAPY, PLEASE SCHEDULE THIS 3 TIMES PER WEEK. *ADAN incisional vac is a special dressing covering your incision. This dressing provides a sterile dry environment while you are healing. The dressing is to be left in place for 7 days post-operatively. Your home nurse or surgeon will remove. If you develop any redness or blisters or have any questions notify your surgeon immediately. FOLLOW UP VISIT: If appointment is not already scheduled: Please call [facility] to make a follow-up appointment for 2 weeks after your surgery at . Pending Studies at Discharge: No Stand-Alone Forms: My [facility], Opioid Pain Management, Smoking Cessation Medications and DC Order Prescriptions: New celecoxib [Celebrex] 200 mg Capsule 200 mg PO BID PRN (Reason: pain/inflammation) Qty: 28 RF: 0 aspirin 81 mg Tablet,Delayed Release (Dr/Ec) 81 mg PO BID Qty: 56 RF: 0 acetaminophen 500 mg Tablet 1,000 mg PO Q8 PRN (Reason: fever/pain) Qty: 90 RF: 0 oxycodone 5 mg Tablet 5 mg PO Q6H MDD 4 PRN (Reason: pain) Qty: 30 RF: 0 sennosides [Senokot] 8.6 mg Tablet 17.2 mg PO HS PRN (Reason: constipation) Qty: 28 RF: 0 Continued citalopram [Celexa] 20 mg Tablet 20 mg PO QAM RF: 0 calcium carbonate-vitamin D3 [Calcium 500 + D] 500 mg(1,250mg) -200 unit Tablet 1 tab PO QAM RF: 0 Zyrtec 10 mg Capsule 10 mg PO QAM RF: 0 multivitamin Tablet 1 tab PO QAM RF: 0 diphenhydramine HCl [Benadryl] 25 mg Capsule 25 mg PO HS RF: 0 lisinopril-hydrochlorothiazide 20-25 mg Tablet 1 tab PO QAM RF: 0 vitamin E 400 unit Capsule 400 unit PO QAM RF: 0 fish oil-dha-epa 1,200-144-216 mg Capsule 1,200 cap PO QAM RF: 0 Ocuvite Adult 50 Plus 250-5-1 mg Capsule 1 cap PO QAM RF: 0 gabapentin 300 mg Capsule 300 mg PO BID RF: 0 Discontinued aspirin [Aspir-81] 81 mg Tablet,Delayed Release (Dr/Ec) 81 mg PO QAM RF: 0 acetaminophen [Tylenol Arthritis] 650 mg Tablet Extended Release 1,300 mg PO QAM RF: 0 meloxicam 15 mg Tablet 15 mg PO QAM RF: 0 Discharge Orders: Discharge Order (Routine); Ordered 08/24/20 Ordered By: Jonathan Quiñones Admission Data Admit Date/Time: 08/23/20 09:27 Attending Provider: Jonathan Quiñones Admit Provider: Jonathan Quiñones Primary Care Provider: Cheri Fuentes Other Interventions: Discharge Summary Assessment (RN) Last Done: 08/24/20 15:15
== END 2020-08-24 15:45 | disposition home health service (06) | DRG 470 ==
LOC: ASU 05:16 → 3E 05:16 → OBSVTOIN 09:27

== ENCOUNTER 2020-08-28 12:07 | Observation (INO) ==
[2020-08-28] MEDS ORDERED: FAMOTIDINE 20MG/5ML IV PUSH IV STA (14:11)
[2020-08-28] MEDS ORDERED: METOCLOPRAMIDE HCL INJ 5 MG/ML 2 ML VIAL IV STA (14:11)
[2020-08-28] MEDS ORDERED: SODIUM CHLORIDE 0.9% 1000ML 1,000 ML IV ONE (14:11)
--- NOTE | 2020-08-28 14:17 | Emergency Department Note ---
Impression & Plan Acute upper abdominal pain, Elevated troponin, Abdominal bloating, Status post hip surgery ED Provider Note NAME: BEBE PAREDES AGE: 70 SEX: F : 1950 ARRIVES VIA: Walk-In INFORMANT: [Patient][family] ED PROVIDER(S): [Alexei House MD] CHIEF COMPLAINT: Abdominal pain HISTORY OF PRESENT ILLNESS: The patient is a 70-year-old female who presents to the ER with mild upper mid abdominal discomfort and bloating. She is belching a lot. Patient had left hip surgery done on Sunday, 5 days ago. She was discharged from the hospital on Sunday. Sunday evening, she began having bloating, she feels gassy. She has vomited a few times. She had a bowel movement 3 days ago. She has been passing gas since but no more bowel movements. The patient went to [facility] 3 days ago. She had a CT scan and lab work. She was told that she did not have an obstruction. She presents today because her symptoms are continuing. There has been no fever, no chest pain, no shortness of breath. She states that her left hip surgical site is doing well. She has minimal left hip pain. REVIEW OF SYSTEMS: See HPI for pertinent positives and negatives. A total of ten systems were reviewed and were otherwise negative. PMHx/PSHx: See Below SOCIAL HISTORY: See Below. PHYSICAL EXAM: GENERAL: Patient is in no acute distress. Belches quite a bit. HEENT: No acute trauma, normocephalic atraumatic, mucous membranes moist, no nasal congestion, no scleral icterus. NECK: No stridor, no adenopathy, no meningismus, trachea is midline. LUNGS: Clear to auscultation bilaterally, no wheeze, no rhonchi, breath sounds equal. HEART: Without murmurs gallops or rubs, regular rate and rhythm. ABDOMEN: Soft, nontender, bowel sounds positive, no hernias, no peritonitis. EXTREMITIES: No cyanosis or edema, full range of motion of all the joints without pain or difficulty, no signs for acute trauma. There is a wound VAC on the left hip surgical site, no significant erythema or drainage. NEUROLOGIC: Oriented x 3, no acute motor or sensory deficits, no focal weakness. SKIN: No rash, no jaundice, no diaphoresis. DIFFERENTIAL DIAGNOSIS: Appendicitis, ovarian cyst, ovarian torsion, ileus, infections, diverticulitis, UTI, obstruction, mesenteric ischemia, aortic pathology, inflammatory bowel disease, renal colic, PUD, pancreatitis, biliary pathology, hernia, volvulus, constipation, as well as other pathologies. EMERGENCY DEPARTMENT COURSE/PROCEDURES: ECG: Indication was abdominal pain. The ECG shows a normal sinus rhythm with a rate of 79. The QTc is 435. There is no ST elevation, no PVCs. Continuous Cardiac Monitoring: An order was placed for continuous cardiac mon itoring. The monitor shows a rate of 80 with normal sinus. MEDICAL DECISION MAKING: I was able to review the CT scan performed a few days ago at the outside hospital. This showed some stranding around the kidneys but otherwise, there was no bowel obstruction or acute surgical pathology. There was a mild leukocytosis which could be consistent with infection or the stress of her situation. There was no worrisome anemia. There was a normal platelet count. Potassium somewhat low at 3.2, no kidney failure. There were some subtle liver enzyme elevations. Cardiac enzyme testing x1 does show an elevation to the troponin, this could be consistent with cardiac injury or s train. ECG shows a sinus rhythm, no acute ischemia. No evidence for pancreatitis. Urinalysis did not show findings of infection. Covid and influenza testing returned negative. Abdominal series did not show any bowel obstruction, pneumonia or free air. Patient was given a 1 L IV saline bolus, she was given a dose of IV potassium. She received IV Reglan. She was given IV Pepcid. She was given oral aspirin. The patient presents with abdominal discomfort and belching. She feels bloated. Work-up does show an elevation to her cardiac troponin. Further cardiac work- up is indicated. I spoke to the patient and case management. The on-call hospitalist was consulted. Past Med/Surg History Medical History Anxiety Arthritis Depression History of COVID-19 04/13/21 [facility]. symptoms: loss of taste and smell. no hospitalization. Hyperlipidemia Per records Hypertension Migraine HX Morbid obesity Sleep apnea CPAP HS Surgical History (Updated 08/28/20 @ 22:00 by Alexei House MD) History of ankle surgery RIGHT CYST REMOVAL History of tonsillectomy History of tooth extraction History of total hip arthroplasty RIGHT History of total knee replacement R/L Family History Mother Family history of diabetes mellitus Grandfather (Paternal) Family hx of colon cancer Other No family history of adverse response to anesthesia Social History Smoking Status: Never smoker Second Hand Exposure: Yes (FATHER smoked); Tobacco Cessation Education Requested by Patient: No Hx Alcohol Use: Yes Alcohol type: beer and other Hx Substance Use: No Preferred Language: Kittitian Communication Ability: Effective Manager Athletics Required: No Beliefs That Will Affect Care: None marital status: Current Living Situation: Spouse and Family Other Information That Helps Us Care for You: No Feels Safe at Home: Yes Safety Concerns: Feels Safe At This Time Assistive Devices: Cane and Glasses Allergies Allergies Allergy/AdvReac Type Severity Reaction Status Date / Time No Known Allergies Allergy Verified 08/28/20 14:17 Home Meds Home Medications Medication Instructions Recorded Confirmed Ocuvite Adult 50 Plus 1 cap PO QAM 04/06/20 08/28/20 Zyrtec 10 mg PO QAM 04/06/20 08/28/20 calcium carbonate-vitamin D3 1 tab PO QAM 04/06/20 08/28/20 [Calcium 500 + D] citalopram [Celexa] 20 mg PO QAM 04/06/20 08/28/20 diphenhydramine HCl [Benadryl] 25 mg PO HS 04/06/20 08/28/20 fish oil-dha-epa 1,200 cap PO QAM 04/06/20 08/28/20 gabapentin 300 mg PO BID 04/06/20 08/28/20 lisinopril-hydrochlorothiazide 1 tab PO QAM 04/06/20 08/28/20 multivitamin 1 tab PO QAM 04/06/20 08/28/20 vitamin E 400 unit PO QAM 04/06/20 08/28/20 ondansetron 4 mg PO UD 08/28/20 08/28/20 promethazine 25 mg PO UD 08/28/20 08/28/20 Previous Rx's Medication Instructions Recorded acetaminophen 1,000 mg PO Q8 PRN #90 tab 08/23/20 aspirin 81 mg PO BID #56 tab 08/23/20 celecoxib [Celebrex] 200 mg PO BID PRN #28 cap 08/23/20 oxycodone 5 mg PO Q6H PRN #30 tab MDD 4 08/23/20 sennosides [Senokot] 17.2 mg PO HS PRN #28 tab 08/23/20 Results & Data (ED) Vital Signs Vital Signs - 24 hr 08/28/20 12:19 08/28/20 14:07 08/28/20 14:13 Temperature 37.0 C Temperature Source Temporal Artery Scan Pulse Rate 80 79 77 Pulse Rate [Left Finger] 80 Pulse Rate from SpO2 Sensor 79 78 Pulse Rhythm [Left Finger] Regular Pulse Strength [Left Finger] Normal Respiratory Rate 18 22 20 Respiratory Effort / Characteristics Non-Labored Respiratory Depth Normal Respiratory Pattern Regular Blood Pressure 172/84 H 181/86 H Blood Pressure [Right Arm] 181/86 H Blood Pressure Mean 113 117 Blood Pressure Mean [Right Arm] 117 Blood Pressure Position [Right Arm] Lying Pulse Oximetry 98 96 97 Oxygen Delivery Method Room Air Sepsis Recent Fever Within 48 Hours No Sepsis New/Unexplained Change in Mental Status No Sepsis Action Taken by Nursing No Action Required 08/28/20 14:30 08/28/20 15:42 08/28/20 15:44 Temperature Temperature Source Pulse Rate 85 81 Pulse Rate [Left Finger] Pulse Rate from SpO2 Sensor 86 81 Pulse Rhythm [Left Finger] Pulse Strength [Left Finger] Respiratory Rate 20 20 Respiratory Effort / Characteristics Respiratory Depth Respiratory Pattern Blood Pressure 162/73 H Blood Pressure [Right Arm] Blood Pressure Mean 102 Blood Pressure Mean [Right Arm] Blood Pressure Position [Right Arm] Pulse Oximetry 93 97 Oxygen Delivery Method Sepsis Recent Fever Within 48 Hours Sepsis New/Unexplained Change in Mental Status Sepsis Action Taken by Nursing 08/28/20 16:00 08/28/20 16:01 08/28/20 16:30 Temperature Temperature Source Pulse Rate 76 76 79 Pulse Rate [Left Finger] Pulse Rate from SpO2 Sensor 76 76 78 Pulse Rhythm [Left Finger] Pulse Strength [Left Finger] Respiratory Rate 16 21 17 Respiratory Effort / Characteristics Respiratory Depth Respiratory Pattern Blood Pressure 165/74 H 175/73 H Blood Pressure [Right Arm] Blood Pressure Mean 104 107 Blood Pressure Mean [Right Arm] Blood Pressure Position [Right Arm] Pulse Oximetry 96 98 97 Oxygen Delivery Method Sepsis Recent Fever Within 48 Hours Sepsis New/Unexplained Change in Mental Status Sepsis Action Taken by Nursing 08/28/20 16:31 Temperature Temperature Source Pulse Rate 77 Pulse Rate [Left Finger] Pulse Rate from SpO2 Sensor 77 Pulse Rhythm [Left Finger] Pulse Strength [Left Finger] Respiratory Rate 19 Respiratory Effort / Characteristics Respiratory Depth Respiratory Pattern Blood Pressure Blood Pressure [Right Arm] Blood Pressure Mean Blood Pressure Mean [Right Arm] Blood Pressure Position [Right Arm] Pulse Oximetry 97 Oxygen Delivery Method Sepsis Recent Fever Within 48 Hours Sepsis New/Unexplained Change in Mental Status Sepsis Action Taken by Snf Medications Current Medication List: was personally reviewed by me Laboratory Data Attestation: I reviewed the patient's lab results. Result diagrams: 08/28/20 14:18 08/28/20 14:18 Lab Results 08/28/20 08/28/20 08/28/20 Range/Units 14:18 14:18 15:45 WBC 13.26 H (4.8-10.8) K/uL RBC 3.82 L (4.2-5.4) M/uL Hgb 11.4 L (12.0-16.0) g/dL Hct 33.0 L (37-47) % MCV 86.4 (80-100) fL MCH 29.8 (25-34) pg MCHC 34.5 (32-36) g/dL RDW Std Deviation 43.4 (36.4-46.3) fL RDW Coeff of Isa 13.7 (11.5-14.5) % Plt Count 293 (130-400) K/uL MPV 9.0 (7.4-10.4) fL Immature Gran % (Auto) 0.3 % Neut % (Auto) 76.4 % Lymph % (Auto) 13.1 % [place] % (Auto) 10.1 % Eos % (Auto) 0.0 % Baso % (Auto) 0.1 % Neut # (Auto) 10.13 H (1.4-6.5) K/uL Lymph # (Auto) 1.74 (1.2-3.4) K/uL [place] # (Auto) 1.34 H (0.11-0.59) K/uL Eos # (Auto) 0.00 (0-0.5) K/uL Baso # (Auto) 0.01 (0-0.2) K/uL Immature Gran # (Auto) 0.04 H (0.00-0.02) K/uL Sodium 137 (136-145) mmol/L Potassium 3.2 L (3.5-5.1) mmol/L Chloride 102 (98-107) mmol/L Carbon Dioxide 30 (21-32) mmol/L Anion Gap 5.0 (3-11) BUN 17 (7-18) mg/dl Creatinine 0.71 (0.6-1.2) mg/dl Est Cr Clr Drug Dosing Not Reportable Est GFR ( Amer) 100.7 Est GFR (Non-Af Amer) 86.9 BUN/Creatinine Ratio 24.4 H (10-20) Glucose 111 H (70-99) mg/dl Calcium 9.3 (8.5-10.1) mg/dl Magnesium 2.4 (1.8-2.4) mg/dl Total Bilirubin 0.7 (0.2-1) mg/dl AST 66 H (15-37) U/L ALT 89 H (12-78) U/L Alkaline Phosphatase 92 (45-117) U/L Troponin I 0.060 H* (0-0.045) ng/ml Total Protein 7.7 (6.4-8.2) gm/dl Albumin 3.2 L (3.4-5.0) gm/dl Globulin 4.5 H (2.5-4.0) gm/dl Albumin/Globulin Ratio 0.7 L (0.9-2) Lipase 85 (73-393) U/L Urine Color Yellow Urine Appearance Clear (Clear) Urine pH 7.5 (4.5-7.5) Ur Specific [place] 1.019 (1.000-1.030) Urine Protein 1+ H (Negative) Urine Glucose (UA) Negative (Negative) Urine Ketones Trace H (Negative) Urine Blood 1+ H (Negative) Urine Nitrite Negative (Negative) Urine Bilirubin Negative (Negative) Urine Urobilinogen Negative (Negative) Ur Leukocyte Esterase Negative (Negative) Urine WBC (Auto) 1-5 (0-5) /hpf Urine RBC (Auto) 5-10 H (0-4) /hpf U Hyaline Cast (Auto) 1-5 (0-5) /lpf U Epithel Cells (Auto) 20-30 H (0-5) /lpf Urine Bacteria (Auto) Negative (Negative) COVID-19 Eval Order SARS-CoV-2 (PCR) (Negative) Influenza Type A (PCR) (Neg) Influenza Type B (PCR) (Neg) RSV (RT-PCR) (Neg) 08/28/20 08/28/20 Range/Units 16:20 16:20 WBC (4.8-10.8) K/uL RBC (4.2-5.4) M/uL Hgb (12.0-16.0) g/dL Hct (37-47) % MCV (80-100) fL MCH (25-34) pg MCHC (32-36) g/dL RDW Std Deviation (36.4-46.3) fL RDW Coeff of Isa (11.5-14.5) % Plt Count (130-400) K/uL MPV (7.4-10.4) fL Immature Gran % (Auto) % Neut % (Auto) % Lymph % (Auto) % [place] % (Auto) % Eos % (Auto) % Baso % (Auto) % Neut # (Auto) (1.4-6.5) K/uL Lymph # (Auto) (1.2-3.4) K/uL [place] # (Auto) (0.11-0.59) K/uL Eos # (Auto) (0-0.5) K/uL Baso # (Auto) (0-0.2) K/uL Immature Gran # (Auto) (0.00-0.02) K/uL Sodium (136-145) mmol/L Potassium (3.5-5.1) mmol/L Chloride (98-107) mmol/L Carbon Dioxide (21-32) mmol/L Anion Gap (3-11) BUN (7-18) mg/dl Creatinine (0.6-1.2) mg/dl Est Cr Clr Drug Dosing Est GFR ( Amer) Est GFR (Non-Af Amer) BUN/Creatinine Ratio (10-20) Glucose (70-99) mg/dl Calcium (8.5-10.1) mg/dl Magnesium (1.8-2.4) mg/dl Total Bilirubin (0.2-1) mg/dl AST (15-37) U/L ALT (12-78) U/L Alkaline Phosphatase (45-117) U/L Troponin I (0-0.045) ng/ml Total Protein (6.4-8.2) gm/dl Albumin (3.4-5.0) gm/dl Globulin (2.5-4.0) gm/dl Albumin/Globulin Ratio (0.9-2) Lipase (73-393) U/L Urine Color Urine Appearance (Clear) Urine pH (4.5-7.5) Ur Specific [place] (1.000-1.030) Urine Protein (Negative) Urine Glucose (UA) (Negative) Urine Ketones (Negative) Urine Blood (Negative) Urine Nitrite (Negative) Urine Bilirubin (Negative) Urine Urobilinogen (Negative) Ur Leukocyte Esterase (Negative) Urine WBC (Auto) (0-5) /hpf Urine RBC (Auto) (0-4) /hpf U Hyaline Cast (Auto) (0-5) /lpf U Epithel Cells (Auto) (0-5) /lpf Urine Bacteria (Auto) (Negative) COVID-19 Eval Order CovFluRsv at [facility] SARS-CoV-2 (PCR) NEGATIVE (Negative) Influenza Type A (PCR) Negative (Neg) Influenza Type B (PCR) Negative (Neg) RSV (RT-PCR) Negative (Neg) Administered Medications Aspirin (Aspirin 81 Mg Ectab) 81 mg PO BID [facility] Stop: 09/27/20 20:59 Last Admin: 08/28/20 20:52 Dose: 81 mg Documented by: [id number] Enoxaparin Sodium (Enoxaparin Inj 40 Mg/0.4 Ml Syr) 40 mg SQ Q24H [facility] Stop: 09/27/20 20:59 Last Admin: 08/28/20 20:54 Dose: 40 mg Documented by: [id number] Gabapentin (Gabapentin 300 Mg Cap) 300 mg PO BID [facility] Stop: 09/27/20 20:59 Last Admin: 08/28/20 20:54 Dose: 300 mg Documented by: [id number] Magnesium Sulfate/Dextrose (Magnesium Sulfate / D5w) 1 gm in 100 mls @ 50 mls/hr IV ONE ONE Stop: 08/28/20 21:59 Last Admin: 08/28/20 20:52 Dose: 50 mls/hr Documented by: [id number] Potassium Chloride (Potassium Chloride Crtab 20 Meq Tabcr) 20 meq PO BID [facility] Stop: 08/29/20 21:01 Last Admin: 08/28/20 20:53 Dose: 20 meq Documented by: [id number] Sennosides (Senna 8.6 Mg Tab) 17.2 mg PO HS [facility] Stop: 09/27/20 20:59 Last Admin: 08/28/20 20:55 Dose: 17.2 mg Documented by: [id number] Discontinued Medications Aspirin (Aspirin Chew 324 Mg) 324 mg PO NOW STA Stop: 08/28/20 15:24 Last Admin: 08/28/20 15:32 Dose: 324 mg Documented by: [id number] Famotidine (Famotidine 20mg/5ml Iv Push) 20 mg IV ONE STA Stop: 08/28/20 14:12 Last Admin: 08/28/20 14:23 Dose: 20 mg Documented by: [id number] Sodium Chloride (Nss 1000ml) 1,000 mls @ 999 mls/hr IV .Q1H1M ONE Stop: 08/28/20 15:11 Last Infusion: 08/28/20 15:32 Dose: 0 mls/hr Documented by: [id number] Admin: 08/28/20 14:18 Dose: 999 mls/hr Documented by: [id number] Potassium Chloride (K Valeriy / Wtr) 10 meq in 100 mls @ 100 mls/hr IV ONE ONE Stop: 08/28/20 16:48 Last Infusion: 08/28/20 19:06 Dose: 0 mls/hr Documented by: [id number] Admin: 08/28/20 16:17 Dose: 100 mls/hr Documented by: [id number] Metoclopramide HCl (Metoclopramide Hcl Inj 5 Mg/Ml 2 Ml Vial) 10 mg IV NOW STA Stop: 08/28/20 14:12 Last Admin: 08/28/20 14:23 Dose: 10 mg Documented by: [id number] Imaging Data Radiologist's Impression: CHEST AND ABDOMEN 2 VIEWS HISTORY: Generalized abdominal pain. Possible obstruction. COMPARISON: Chest 08/17/2020. FINDINGS: Mild diffuse interstitial thickening which is likely chronic. The heart is normal in size. No new focal lung consolidations to suggest pneumonia. No evidence for pulmonary edema. No pleural effusions. No pneumothorax. Multiple nondilated gas-filled loops of large and small bowel seen throughout the abdomen. No evidence for bowel obstruction. No pneumoperitoneum. No pneumatosis. There are bilateral total hip arthroplasties. There are surgical clips within the left lower quadrant. Degenerative changes within the lumbar spine. IMPRESSION: 1. No acute process within the chest. 2. No evidence for bowel obstruction. Discharge Plan Visit Data Chief Complaint: Abdominal Pain Stated Complaint: POST SURGERY CAUSING ABDOMINAL PAIN GAS ED Provider: Alexei House Discharge Problem: Acute upper abdominal pain, Elevated troponin, Abdominal bloating, Status post hip surgery Patient Disposition: Admitted As Inpatient Condition: Fair Discharge Instructions Interventions: ED Discharge Assessment Last Done: 08/28/20 18:44
[2020-08-28 14:39] LABS: Basophils # (auto) 0.01 K/uL (0-0.2); Basophils % (auto) 0.1 %; Hemoglobin 11.4 g/dL (12.0-16.0); Immature Granulocytes # (auto) 0.04 K/uL (0.00-0.02); Immature Granulocytes % (auto) 0.3 %; Lymphocytes # (auto) 1.74 K/uL (1.2-3.4); Lymphocytes % (auto) 13.1 %; Mean Corpuscular Hemoglobin 29.8 pg (25-34); Mean Corpuscular Hgb Conc 34.5 g/dL (32-36); Mean Corpuscular Volume 86.4 fL (80-100); Monocytes # (auto) 1.34 K/uL (0.11-0.59); Monocytes % (auto) 10.1 %; Neutrophils # (auto) 10.13 K/uL (1.4-6.5); Neutrophils % (auto) 76.4 %; Platelet Count 293 K/uL (130-400); RDW Coefficient of Variation 13.7 % (11.5-14.5); RDW Standard Deviation 43.4 fL (36.4-46.3); Red Blood Count 3.82 M/uL (4.2-5.4); White Blood Count 13.26 K/uL (4.8-10.8)
[2020-08-28 14:56] LABS: Alanine Aminotransferase 89 U/L (12-78); Albumin Level 3.2 gm/dl (3.4-5.0); Aspartate Aminotransferase 66 U/L (15-37); BUN Creatinine Ratio 24.4 (10-20); Blood Urea Nitrogen 17 mg/dl (7-18); Calcium 9.3 mg/dl (8.5-10.1); Carbon Dioxide 30 mmol/L (21-32); Chloride 102 mmol/L (98-107); Est GFR (African American) 100.7; Est GFR (Non-African American) 86.9; Glucose 111 mg/dl (70-99); Lipase 85 U/L (73-393); Magnesium 2.4 mg/dl (1.8-2.4); Potassium 3.2 mmol/L (3.5-5.1); Sodium 137 mmol/L (136-145)
[2020-08-28 15:10] LABS: Albumin Globulin Ratio 0.7 (0.9-2); Alkaline Phosphatase 92 U/L (45-117); Bilirubin,Total 0.7 mg/dl (0.2-1); Globulin 4.5 gm/dl (2.5-4.0); Total Protein 7.7 gm/dl (6.4-8.2)
--- NOTE | 2020-08-28 15:20 | XRay Report ---
CHEST AND ABDOMEN 2 VIEWS HISTORY: Generalized abdominal pain. Possible obstruction. COMPARISON: Chest 08/17/2020. FINDINGS: Mild diffuse interstitial thickening which is likely chronic. The heart is normal in size. No new focal lung consolidations to suggest pneumonia. No evidence for pulmonary edema. No pleural ef fusions. No pneumothorax. Multiple nondilated gas-filled loops of large and small bowel seen througho ut the abdomen. No evidence for bowel obstruction. No pneumoperitoneum. No pneumatosis. There are lisa ateral total hip arthroplasties. There are surgical clips within the left lower quadrant. Degenerativ e changes within the lumbar spine. IMPRESSION: 1. No acute process within the chest. 2. No evidence for bowel obstruction. ACT 112: Negative or not required by law. Electronically signed by: Seymour Tejada M.D. 08/28/2020 3:18 PM
[2020-08-28] MEDS ORDERED: ASPIRIN CHEW 324 MG PO STA (15:23)
[2020-08-28] MEDS ORDERED: POTASSIUM CHLORIDE / WTR 10 MEQ/100 ML PLCT IV ONE (15:49)
[2020-08-28 16:06] LABS: Appearance Urine Clear (Clear); Bacteria Urine Automated Negative (Negative); Bilirubin Urine Negative (Negative); Blood Urine 1+ (Negative); Color Urine Yellow; Epithelial Cell Urine Auto 20-30 /lpf (0-5); Glucose Urine UA Negative (Negative); Ketones Urine Trace (Negative); Leukocyte Esterase Urine Negative (Negative); Nitrite Urine Negative (Negative); Specific Gravity Urine 1.019 (1.000-1.030); Urobilinogen Urine Negative (Negative); pH Urine 7.5 (4.5-7.5)
[2020-08-28 16:10] LABS: Protein Urine 1+ (Negative)
--- NOTE | 2020-08-28 16:27 | History & Physical Report ---
Date of Service August 28, 2020 Assessment & Plan (1) Elevated troponin: Patient is elevated troponin not in context of acute coronary syndrome. Will observe the patient in the hospital we will check serial troponins. Because of the elevated troponin and newfound what sounds to be aortic murmur an echocardiogram will be obtained Patient was discharged on aspirin twice daily this will be continued and also serve as antiplatelet agents. She was given 324 mg of aspirin in the ER. She will have daily EKGs and EKGs if chest pain. (2) Bloating: this was her initial complaint and is resolved, ER was concerned maybe an angina equivalent? (3) Depression: Patient has depression she typically takes Celexa which will be continued (4) Hypertension: Patient is on lisinopril hydrochlorothiazide (5) Sleep apnea: Patient typically wears CPAP at night 15 cm of water this will be continued (6) Morbid obesity: Patient is history of morbid obesity which likely affects her osteoarthritis (7) Hypokalemia: Patient was given intravenous potassium in the ER she will be given oral potassium a dose of magnesium and have blood checked in the morning (8) DVT prophylaxis: Postoperative DVT prophylaxis chosen by surgery is aspirin 81 twice daily History of Present Illness Primary Care Provider: Cheri Fuentes DO 70-year-old female who presents to the ER with mild upper mid abdominal discomfort and bloating. She is belching a lot. Patient had left hip surgery done on Sunday, 5 days ago. She was discharged from the hospital on Sunday with a wound vac by Dr Quiñones. Sunday evening, she began having bloating, she feels gassy. She has vomited a few times. She had a bowel movement on sunday and sunday. She has been passing gas since but no more bowel movements. The patient went to [facility] 3 days ago. She had a CT scan and lab work. She was told that she did not have an obstruction. Emergency room physician states he reviewed the CT report from do [place] and it also was without significant intra-abdominal pathology. Patient has now been symptom-free after intravenous Reglan and famotidine. However her screening blood work in the ER showed her to have a mildly elevated troponin at 0.06. EKG shows no acute current of injury and the patient has had no anginal equivalent symptoms unless she would count this GI constellation as such. He however states that exertion did not bring on her GI symptoms she had had no other associated symptoms when the GI symptoms were occurring. Patient request to speak to Dr. Clay prior to going home to determine if her wound VAC to be removed slightly early. Allergies Allergy/AdvReac Type Severity Reaction Status Date / Time No Known Allergies Allergy Verified 08/28/20 14:17 Home Medications Medication Instructions Recorded Confirmed Type Ocuvite Adult 50 Plus 1 cap PO QAM 04/06/20 08/28/20 History Zyrtec 10 mg PO QAM 04/06/20 08/28/20 History calcium carbonate-vitamin D3 1 tab PO QAM 04/06/20 08/28/20 History [Calcium 500 + D] citalopram [Celexa] 20 mg PO QAM 04/06/20 08/28/20 History diphenhydramine HCl [Benadryl] 25 mg PO HS 04/06/20 08/28/20 History fish oil-dha-epa 1,200 cap PO QAM 04/06/20 08/28/20 History gabapentin 300 mg PO BID 04/06/20 08/28/20 History lisinopril-hydrochlorothiazide 1 tab PO QAM 04/06/20 08/28/20 History multivitamin 1 tab PO QAM 04/06/20 08/28/20 History vitamin E 400 unit PO QAM 04/06/20 08/28/20 History acetaminophen 1,000 mg PO Q8 PRN #90 tab 08/23/20 08/28/20 Rx aspirin 81 mg PO BID #56 tab 08/23/20 08/28/20 Rx celecoxib [Celebrex] 200 mg PO BID PRN #28 cap 08/23/20 08/28/20 Rx oxycodone 5 mg PO Q6H PRN #30 tab MDD 4 08/23/20 08/28/20 Rx sennosides [Senokot] 17.2 mg PO HS PRN #28 tab 08/23/20 08/28/20 Rx ondansetron 4 mg PO UD 08/28/20 08/28/20 History promethazine 25 mg PO UD 08/28/20 08/28/20 History Past Med/Surg History Medical History (Updated 08/28/20 @ 20:56 by Rafi Mejia MD) Anxiety Arthritis Depression History of COVID-19 04/13/21 [facility]. symptoms: loss of taste and smell. no hospitalization. Hyperlipidemia Per records Hypertension Migraine HX Morbid obesity Sleep apnea CPAP HS Surgical History History of ankle surgery RIGHT CYST REMOVAL History of tonsillectomy History of tooth extraction History of total hip arthroplasty RIGHT History of total knee replacement R/L Family History Mother Family history of diabetes mellitus Grandfather (Paternal) Family hx of colon cancer Other No family history of adverse response to anesthesia Social History Smoking Status: Never smoker Second Hand Exposure: Yes (FATHER smoked); Tobacco Cessation Education Requested by Patient: No Hx Alcohol Use: Yes Alcohol type: beer and other Hx Substance Use: No Preferred Language: Zimbabwean Communication Ability: Effective Retort Operator Required: No Beliefs That Will Affect Care: None marital status: Current Living Situation: Spouse and Family Other Information That Helps Us Care for You: No Feels Safe at Home: Yes Safety Concerns: Feels Safe At This Time Assistive Devices: Cane and Glasses Review of Systems Review of Systems: Mild distress and fatigue no headache, blurry or double vision no speech or swallowing issues no chest pain, pressure or palpitations no shortness of breath, cough or wheezes Patient is felt gassy bloated and distended with increased burping and some vomiting of food products no dysuria, hematuria or frequency Typical left hip discomfort which she says is slight no back pain, CVA tenderness or radicular pain no bruising, bleeding or rashes no focal signs of weakness or numbness or altered sensation no complaints of anxiety or depression.. Physical Exam Physical Exam: The patient appeared well nourished and normally developed. Vital signs as documented. Head exam is normocephalic atraumatic no scleral icterus Neck is without JVD, thyromegaly, or carotid bruits. Lungs are clear to auscultation, no focal loss of breath sounds Cardiac exam, Rhythm is regular. Right upper sternal border systolic murmur is heard which she says is a most recent finding for her. She said one of the physician has told her this but the anesthesia preop evaluation did not corroborate this Abdominal exam reveals hyperactive bowel sounds, soft non tender, no masses Extremities are nonedematous and both pedal pulses are present patient has a wound VAC on her left hip the hip what can be seen wound looks clean dry and intact Neurologic exam is alert and oriented, no focal loss of strength or sensation Skin is without bruises or rashes Psychologically is without concerns for anxiety or depression Results & Data Results & Data ([facility]) Vital Signs (Past 12 Hours) Vital Signs Temp Pulse Pulse Resp BP BP Pulse Ox 08/28/20 14:07 80 20 181/86 H 98 08/28/20 12:19 98.6 F 80 18 172/84 H 98 PG Care Time/CCT Total # of Minutes Spent Total Time Spent with Patient: Total time spent is greater than 50% in coordination of care (as documented) at patient's floor/unit and/or counseling patient: Coding Level of Care Code 09940 OBS Care - Level 3 Diagnoses Elevated troponin R77.8 Bloating R14.0 Depression F32.9 Hypertension I10 Sleep apnea G47.30 Morbid obesity E66.01 Hypokalemia E87.6 DVT prophylaxis Z29.9
[2020-08-28 17:30] LABS: Influenza A virus by PCR Negative (Neg); Influenza B virus by PCR Negative (Neg); RSV by PCR Negative (Neg); SARS CoV2 RNA(COVID-19) InHosp NEGATIVE (Negative)
[2020-08-28] MEDS ORDERED: ALUMINUM/MAGNESIUM SUSP 30 ML UDC PO PRN (19:04)
[2020-08-28] MEDS ORDERED: MoRPHine SULFATE 2 MG/ML CARP IV PRN (19:04)
[2020-08-28] MEDS ORDERED: POLYETHYLENE (MIRALAX) 17 GM PACK PO PRN (19:04)
[2020-08-28] MEDS ORDERED: MoRPHine SULFATE 4 MG/ML 1 ML CARP\\VIAL IV PRN (19:04)
[2020-08-28] MEDS ORDERED: ACETAMINOPHEN 500 MG TAB PO PRN (19:04)
[2020-08-28] MEDS ORDERED: PROMETHAZINE HCL 25 MG TAB PO PRN (19:04)
[2020-08-28] MEDS ORDERED: oxyCODONE HCL IR 5 MG TAB (IMMEDIATE RELEASE) PO PRN (19:04)
[2020-08-28] MEDS ORDERED: MAGNESIUM SULFATE / D5W 1 GM/100 ML BAG IV ONE (20:00)
[2020-08-28] MEDS: ASPIRIN 81 MG ECTAB PO SCH (20:52)
[2020-08-28] MEDS: POTASSIUM CHLORIDE CRTAB 20 MEQ TABCR PO SCH (20:53)
[2020-08-28] MEDS: GABAPENTIN 300 MG CAP PO SCH (20:54)
[2020-08-28] MEDS ORDERED: SENNA 8.6 MG TAB PO SCH (21:00)
[2020-08-28] MEDS ORDERED: ENOXAPARIN INJ 40 MG/0.4 ML SYR SQ SCH (21:00)
[2020-08-29 07:17] LABS: BUN Creatinine Ratio 24.9 (10-20); Calcium 8.9 mg/dl (8.5-10.1); Creatinine Clr Calc Pharmacy 93.1 ml/min; Est GFR (Non-African American) 90.6; Magnesium 2.3 mg/dl (1.8-2.4); Potassium 3.2 mmol/L (3.5-5.1)
--- NOTE | 2020-08-29 07:29 | Orthopedic Consultation ---
Date of Consultation August 29, 2020 Assessment & Plan (1) S/P total hip arthroplasty: Patient is POD#6 left total hip arthroplasty. Continue therapy as instructed, continue BID aspirin for 81mg. Would recommend continuing ADAN dressing until tomorrow and then patient can remove. Follow up with Dr. Quiñones as scheduled. Thank you for this consult, please contact orthopedics with any questions. Ortho will sign off. History of Present Illness Reason for Consultation: Left total hip, question on ADAN wound vac Requesting Physician: Dr. Mejia Attending Physician: Kavita Drake DO History of Present Illness 70 year old female who underwent left total hip arthroplasty by Dr. Quiñones on 08/23/20. Patient had an uncomplicated course. She presented to ED yesterday with complaints of abdominal pain and bloating/belching. She was admitted to medical service for elevated troponins. She has a ADAN wound vac in place over left hip incision. Hip is doing well, pain well controlled. Allergies Allergy/AdvReac Type Severity Reaction Status Date / Time No Known Allergies Allergy Verified 08/28/20 14:17 Home Medications Medication Instructions Recorded Confirmed Type Ocuvite Adult 50 Plus 1 cap PO QAM 04/06/20 08/28/20 History Zyrtec 10 mg PO QAM 04/06/20 08/28/20 History calcium carbonate-vitamin D3 1 tab PO QAM 04/06/20 08/28/20 History [Calcium 500 + D] citalopram [Celexa] 20 mg PO QAM 04/06/20 08/28/20 History diphenhydramine HCl [Benadryl] 25 mg PO HS 04/06/20 08/28/20 History fish oil-dha-epa 1,200 cap PO QAM 04/06/20 08/28/20 History gabapentin 300 mg PO BID 04/06/20 08/28/20 History lisinopril-hydrochlorothiazide 1 tab PO QAM 04/06/20 08/28/20 History multivitamin 1 tab PO QAM 04/06/20 08/28/20 History vitamin E 400 unit PO QAM 04/06/20 08/28/20 History acetaminophen 1,000 mg PO Q8 PRN #90 tab 08/23/20 08/28/20 Rx aspirin 81 mg PO BID #56 tab 08/23/20 08/28/20 Rx celecoxib [Celebrex] 200 mg PO BID PRN #28 cap 08/23/20 08/28/20 Rx oxycodone 5 mg PO Q6H PRN #30 tab MDD 4 08/23/20 08/28/20 Rx sennosides [Senokot] 17.2 mg PO HS PRN #28 tab 08/23/20 08/28/20 Rx ondansetron 4 mg PO UD 08/28/20 08/28/20 History promethazine 25 mg PO UD 08/28/20 08/28/20 History Patient History Medical History Anxiety Arthritis Depression History of COVID-19 04/13/21 [facility]. symptoms: loss of taste and smell. no hospitalization. Hyperlipidemia Per records Hypertension Migraine HX Morbid obesity Sleep apnea CPAP HS Surgical History (Updated 08/29/20 @ 07:33 by Be Jenkins) History of ankle surgery RIGHT CYST REMOVAL History of tonsillectomy History of tooth extraction History of total hip arthroplasty RIGHT History of total knee replacement R/L Family History Mother Family history of diabetes mellitus Grandfather (Paternal) Family hx of colon cancer Other No family history of adverse response to anesthesia Social History Smoking Status: Never smoker Second Hand Exposure: Yes (FATHER smoked); Tobacco Cessation Education Requested by Patient: No Hx Alcohol Use: Yes Alcohol type: beer and other Hx Substance Use: No Preferred Language: Amharic Communication Ability: Effective Forensic Analyst Required: No Beliefs That Will Affect Care: None marital status: Current Living Situation: Spouse and Family Other Information That Helps Us Care for You: No Feels Safe at Home: Yes Safety Concerns: Feels Safe At This Time Assistive Devices: None Review of Systems Review of Systems: All systems reviewed & are unremarkable except as noted in HPI & below Physical Exam Constitutional: well developed and well nourished; no acute distress Respiratory: normal respiratory effort Cardiovascular: Rate/Rhythm: regular rate and regular rhythm Musculoskeletal: Left hip-ADAN wound vac in place and suctioning. No surrounding erythema. No tenderness. No calf tenderness. Distally sensation and n/v status intact. Toes mobile with good dorsiflexion. Skin: no rashes, warm and dry Results & Data ([facility]) Vital Signs (Past 12 Hours) Vital Signs Temp Pulse Pulse Resp BP BP Pulse Ox 08/29/20 07:11 81 08/29/20 03: 37.1 C 86 20 134/76 96 08/28/20 23:12 36.9 C 78 20 166/73 H 95 08/28/20 22:25 86 18 96 08/28/20 22:21 100 H 08/28/20 20:00 85 08/28/20 19:55 36.9 C 89 20 133/80 95 (1) S/P total hip arthroplasty Laterality: left Qualified Code(s): Z96.642 - Presence of left artificial hip joint
[2020-08-29] MEDS: POTASSIUM CHLORIDE CRTAB 20 MEQ TABCR PO SCH (08:27)
[2020-08-29] MEDS: ASPIRIN 81 MG ECTAB PO SCH (08:28)
[2020-08-29] MEDS: GABAPENTIN 300 MG CAP PO SCH (08:28)
[2020-08-29] MEDS ORDERED: LISINOPRIL/HCTZ 20/25MG 1 TAB PO SCH (09:00)
[2020-08-29] MEDS ORDERED: ASPIRIN 81 MG ECTAB PO SCH (09:00)
[2020-08-29] MEDS ORDERED: CETIRIZINE HCL 10 MG TABLET PO SCH (09:00)
[2020-08-29] MEDS ORDERED: CITALOPRAM 20 MG TAB PO SCH (09:00)
--- NOTE | 2020-08-29 09:22 | Hospitalist Progress Note ---
Date of Service August 29, 2020 Assessment & Plan (1) Acute upper abdominal pain: 70 y/o F w/ hx of of anxiety, arthritis, depression, covid, htn, hld, migraine, [place] (cpap) who is POD6 (total L hip arthroplasty) and presents w/ a week of abdominal bloating. Stable. Elevated troponin: Patient is elevated troponin not in context of acute coronary syndrome. Will observe the patient in the hospital we will check serial troponins. Because of the elevated troponin and newfound what sounds to be aortic murmur an echocardiogram will be obtained Patient was discharged on aspirin twice daily this will be continued and also serve as antiplatelet agents. She was given 324 mg of aspirin in the ER. She will have daily EKGs and EKGs if chest pain. - will ask about risk factors - given the downtrending and mild elevation of trop, will follow 1 more. Patient not complaining of chest pain. Will check echo and defer stress testing. Ecg reviewed and w/o acute ischemic changes. ketonuria - 1+ ketones on UA. No prior dx of diabetes. - A1c 5.7 on 08/17/20 - no further workup/intervention indicated Bloating: this was her initial complaint and is resolved, ER was concerned maybe an angina equivalent? - will inquire if famotidine in ED provided relief of symptoms Depression: Patient has depression she typically takes Celexa which will be continued Hypertension: Patient is on lisinopril hydrochlorothiazide Sleep apnea: Patient typically wears CPAP at night 15 cm of water this will be continued Morbid obesity: Patient is history of morbid obesity which likely affects her osteoarthritis Hypokalemia: Patient was given intravenous potassium in the ER she will be given oral potassium a dose of magnesium and have blood checked in the morning s/p total left hip arthroplasty - ortho consulted. recs: baby ASA BID. remove ADAN dressing 08/30. FEN/GI: HH diet. no maintenance fluids ppx: Postoperative DVT prophylaxis chosen by surgery is aspirin 81 twice daily code: full dispo: med/surg tele. potential dispo 08/29 pending echo (2) Elevated troponin: (3) Hypertension: (4) Hyperlipidemia: (5) Depression: (6) Sleep apnea: (7) DVT prophylaxis: (8) Elevated troponin: (9) S/P total hip arthroplasty: Admission and Anticipated Discharge Date Admission Date: August 28, 2020 Subjective S/p L total hip replacement on 08/23. After she went home, she developed abd bloating sensation. No abdominal pain. Bloating allevaited by burping. BMs have been normal. 08/25 she went to [facility] and had a ct neg for obstruction. No e mesis in last several days. She has not been eating much the past week. No substance use or hx of GI problems. Her daughter has crohn's. Patient denies hx of abdominal or crime specialist surgeries. Review of Systems Review of Systems: Constitutional: Denies fever, chills Cardiovascular: Denies chest pain, palpitations Respiratory: Denies shortness of breath Gastrointestinal: + abd bloating Genitourinary: Denies urinary symptoms including dysuria Musculoskeletal: Denies weakness, muscle aches/pain, joint aches/pain Neurological: Denies headache, numbness, tingling, focal weakness Physical Exam Physical Exam: General: Grossly A&O. NAD. Cooperative. HEENT: Atraumatic, normocephalic. Pulm: CTAB. -wheezes, -rales, -rhonchi. No respiratory distress. Cardiac: RRR, -mrg. No LE edema, examined over socks. Abdominal: Nontender, nondistended, soft. No ttp to deep palpation. Good bowel sounds. Back: No cva ttp. Integ: L hip wound vac clean, dry, intact Results & Data Results & Data ([facility]) Vital Signs (Past 12 Hours) Vital Signs Temp Pulse Pulse Resp BP BP Pulse Ox 08/29/20 08:02 36.9 C 92 H 18 109/77 91 08/29/20 07:11 81 08/29/20 03:28 37.1 C 86 20 134/76 96 08/28/20 23:12 36.9 C 78 20 166/73 H 95 08/28/20 22:25 86 18 96 08/28/20 22:21 100 H Resident Activity Tracking Resident Involvement: Resident Care Provided Care Provided: Adult Hospital Medicine (1) S/P total hip arthroplasty Laterality: left Qualified Code(s): Z96.642 - Presence of left artificial hip joint
--- NOTE | 2020-08-29 14:37 | XCELERA ---
[id number]
--- NOTE | 2020-08-29 15:07 | Electrocardiogram Report ---
Test Reason : Blood Pressure : / mmHG Vent. Rate : 088 BPM Atrial Rate : 088 BPM P-R Int : 164 ms QRS Dur : 078 ms QT Int : 366 ms P-R-T Axes : 030 019 023 degrees QTc Int : 442 ms Normal sinus rhythm Normal ECG When compared with ECG of 28-AUG-2020 14:27, (unconfirmed) No significant change was found Confirmed by Andre Phillips ([id number]) on 08/29/2020 3:07:07 PM Referred By: REFERRED SELF Confirmed By:Andre Phillips
--- NOTE | 2020-08-29 15:09 | Electrocardiogram Report ---
Test Reason : Blood Pressure : / mmHG Vent. Rate : 079 BPM Atrial Rate : 079 BPM P-R Int : 150 ms QRS Dur : 070 ms QT Int : 380 ms P-R-T Axes : 080 016 024 degrees QTc Int : 435 ms Poor data quality, interpretation may be adversely affected Normal sinus rhythm Normal ECG When compared with ECG of 17-AUG-2020 10:51, No significant change was found Confirmed by Andre Phillips ([id number]) on 08/29/2020 3:09:25 PM Referred By: Confirmed By:Andre Phillips
[2020-08-29] MEDS ORDERED: FAMOTIDINE 10 MG TABLET PO ONE (16:48)
--- NOTE | 2020-08-29 18:55 | Discharge Summary ---
Date of Service August 29, 2020 Admission HPI Per Admitting Provider 70-year-old female who presents to the ER with mild upper mid abdominal discomfort and bloating. She is belching a lot. Patient had left hip surgery done on Sunday, 5 days ago. She was discharged from the hospital on Sunday with a wound vac by Dr Quiñones. Sunday evening, she began having bloating, she feels gassy. She has vomited a few times. She had a bowel movement on sunday and sunday. She has been passing gas since but no more bowel movements. The patient went to [facility] 3 days ago. She had a CT scan and lab work. She was told that she did not have an obstruction. Emergency room physician states he reviewed the CT report from do [place] and it also was without significant intra-abdominal pathology. Patient has now been symptom-free after intravenous Reglan and famotidine. However her screening blood work in the ER showed her to have a mildly elevated troponin at 0.06. EKG shows no acute current of injury and the patient has had no anginal equivalent symptoms unless she would count this GI constellation as such. He however states that exertion did not bring on her GI symptoms she had had no other associated symptoms when the GI symptoms were occurring. Patient request to speak to Dr. Clay prior to going home to determine if her wound VAC to be removed slightly early. Admission Exam Per Admitting Provider The patient appeared well nourished and normally developed. Vital signs as documented. Head exam is normocephalic atraumatic no scleral icterus Neck is without JVD, thyromegaly, or carotid bruits. Lungs are clear to auscultation, no focal loss of breath sounds Cardiac exam, Rhythm is regular. Right upper sternal border systolic murmur is heard which she says is a most recent finding for her. She said one of the physician has told her this but the anesthesia preop evaluation did not corroborate this Abdominal exam reveals hyperactive bowel sounds, soft non tender, no masses Extremities are nonedematous and both pedal pulses are present patient has a wound VAC on her left hip the hip what can be seen wound looks clean dry and intact Neurologic exam is alert and oriented, no focal loss of strength or sensation Skin is without bruises or rashes Psychologically is without concerns for anxiety or depression Principal Diagnosis abdominal bloating Discharge Exam General: Grossly A&O. NAD. Cooperative. HEENT: Atraumatic, normocephalic. Pulm: CTAB. -wheezes, -rales, -rhonchi. No respiratory distress. Cardiac: RRR, -mrg. No LE edema, examined over socks. Abdominal: Nontender, nondistended, soft. No ttp to deep palpation. Good bowel sounds. Back: No cva ttp. Integ: L hip wound vac clean, dry, intact Discharge Data Allergies Allergy/AdvReac Type Severity Reaction Status Date / Time No Known Allergies Allergy Verified 08/28/20 14:17 Consultations 08/28/20 16:25 ED Decision to Admit Stat 08/28/20 16:57 Consult Orthopedic Surgery Routine Hospital Course (1) Acute upper abdominal pain: 70 y/o F w/ hx of of anxiety, arthritis, depression, covid (recovered), htn, hld, migraine, [place] (cpap) who is POD6 (total L hip arthroplasty) and presented w/ a week of abdominal bloating. - f/u pcp in 1 wk - check BMP in 1 week - check that ADAN dressing / wound vac has been removed/followed up appropriately Bloating: this was her initial complaint had good improvement w/ iv famotidine 20 mg x1, so will continue PO famotidine 10 mg up to 2x/day PRN. - xr imaging did not suggest obstruction. per patient, she had ct at [facility] 4 days ago that did not show obstruction - no symptoms of heartburn. no hx of IBD. has not had colonoscopy but has had fecal stool tests, last 1.5-2 years ago. Elevated troponin: Patient is elevated troponin not in context of acute coronary syndrome. Will observe the patient in the hospital we will check serial troponins. .060- >.046. Because of the elevated troponin and newfound what sounds to be aortic murmur an echocardiogram will be obtained. Echo had normal EF 60-56 w/o wall motion abnormality. Grade 1 diastolic dysfxn. Mild concentric LVH. ECG did not show ischemic changes. No personal cardiac risk factors and no hx of tobacco use, but her mother did have [place] in her early 50s. Given that patient has no chest pain, diaphoresis, arm numbness/tingling, or jaw pain, and the other studies, and lack of risk factors other than family hx, overall suspicion for ACS is low. Recommended outpatient stress ecg, but because patient is s/p hip surgery, can defer until able. ketonuria - 1+ ketones on UA. No prior dx of diabetes. - A1c 5.7 on 08/17/20 - no further workup/intervention indicated Depression: Patient has depression she typically takes Celexa which will be continued Hypertension: Patient is on lisinopril hydrochlorothiazide Sleep apnea: Patient typically wears CPAP at night 15 cm of water this will be continued Morbid obesity: Patient is history of morbid obesity which likely affects her osteoarthritis Hypokalemia: Patient was given intravenous potassium in the ER she will be given oral potassium a dose of magnesium and have blood checked in the morning s/p total left hip arthroplasty - ortho consulted. recs: continue baby ASA BID. remove ADAN dressing wound vac on 08/30. code: full (2) Elevated troponin: (3) Hypertension: (4) Hyperlipidemia: (5) Depression: (6) Sleep apnea: (7) DVT prophylaxis: (8) S/P total hip arthroplasty: Total Time Total Time Spent Total Time Spent (In Minutes): See attending documentation Discharge Plan Discharge Items Patient Disposition: Home - Self-Care Reason For Visit: ELEVATED TROPONIN Discharge Diagnosis: abdominal bloating Activity: Per Instructions section Non-emergency contact: Primary Care Provider Call non-emergency contact if: you have any medication questions, your pain is not controlled and you have a fever Follow-up/Referrals: Cheri Fuentes DO [Primary Care Provider] - (hosp f/u in 1 week) Diet: Regular Addtl Attending Provider Instructions: Hi Ms. Cortes, You were admitted to [facility] for abdominal bloating that started after you had hip surgery 6 days ago. While here, we checked your labwork and performed some imaging tests. The xray imaging of your abdomen did not show obstruction. You mentioned that you had a ct scan of your abdomen from an outside emergency department earlier in the week and that it also did not show obstruction. You had good bowel sounds on exam which is also reassuring. Regarding your symptoms, the famotidine injection provided in the ED helped. You can take famotidine (Pepcid) 10 mg tab up to twice a day, as needed for the bloating symptoms. It is available as an over the counter medicine. Please follow up with your primary care doctor in 1 week. The staff here will call to make an appointment for you, but if you do not hear back, please call to make an appointment. You had a slight elevation in your heart enzyme, troponin. We repeated the level and it decreased, which is good. The ecg was normal. We checked an ultrasound of your heart and it showed normal function. If you develop any new or worsening symptoms including fever, chills, sweats, chest pain, chest pressure, difficulty breathing, uncontrolled nausea/vomiting, rash, wheezing, passing out or nearly passing out, bleeding, black/bloody bowel movements, or other new or concerning symptoms please call your primary care physician, or call 911 for re-evaluation in the emergency department if you are very concerned. Pending Studies at Discharge: No Stand-Alone Forms: My [facility], Smoking Cessation Medications and DC Order Prescriptions: Continued citalopram [Celexa] 20 mg Tablet 20 mg PO QAM RF: 0 calcium carbonate-vitamin D3 [Calcium 500 + D] 500 mg(1,250mg) -200 unit Tablet 1 tab PO QAM RF: 0 Zyrtec 10 mg Capsule 10 mg PO QAM RF: 0 multivitamin Tablet 1 tab PO QAM RF: 0 diphenhydramine HCl [Benadryl] 25 mg Capsule 25 mg PO HS RF: 0 lisinopril-hydrochlorothiazide 20-25 mg Tablet 1 tab PO QAM RF: 0 vitamin E 400 unit Capsule 400 unit PO QAM RF: 0 fish oil-dha-epa 1,200-144-216 mg Capsule 1,200 cap PO QAM RF: 0 Ocuvite Adult 50 Plus 250-5-1 mg Capsule 1 cap PO QAM RF: 0 gabapentin 300 mg Capsule 300 mg PO BID RF: 0 celecoxib [Celebrex] 200 mg Capsule 200 mg PO BID PRN (Reason: pain/inflammation) Qty: 28 RF: 0 aspirin 81 mg Tablet,Delayed Release (Dr/Ec) 81 mg PO BID Qty: 56 RF: 0 acetaminophen 500 mg Tablet 1,000 mg PO Q8 PRN (Reason: fever/pain) Qty: 90 RF: 0 oxycodone 5 mg Tablet 5 mg PO Q6H MDD 4 PRN (Reason: pain) Qty: 30 RF: 0 sennosides [Senokot] 8.6 mg Tablet 17.2 mg PO HS PRN (Reason: constipation) Qty: 28 RF: 0 promethazine 25 mg tablet 25 mg PO UD RF: 0 ondansetron 4 mg tablet,disintegrating 4 mg PO UD RF: 0 Discharge Orders: Discharge Order (Routine); Ordered 08/29/20 Ordered By: Blue Wilson Admission Data Admit Date/Time: 08/28/20 16:39 Attending Provider: Kavita Drake Admit Provider: Rafi Mejia Primary Care Provider: Cheri Fuentes Other Providers: Rafi Mejia ; Jonathan Quiñones Other Interventions: Discharge Summary Assessment (RN) Last Done: 08/29/20 17:10 Supervising Physician Co-Signing Physician Notes Patient seen and examined independently of PGY-1 Dr. Wilson. Agree with history, exam findings, assessment and plan of care as outlined with the following upda denia/corrections. In brief, Ms Cortes is a 70 year old female with history of HTN and recent CHAD admitted with concerns for new bloating as an anginal equivalent. Noted to have a mildly elevated troponin but reassuring EKG without ischenic changes. TTE done showed preserved ejection fracture and no regional wall motion abnormalities. Symptoms improved with pepcid. Continue pepcid on discharge. Troponin trended down from the time of admission. Suspect that demand ischemia. HTN was well controlled during her hospital stay. I personally spent 35 minutes discharge planning for this patient. Resident Activity Tracking Resident Involvement: Resident Care Provided Care Provided: Adult Hospital Medicine
== END 2020-08-29 18:32 | disposition home or self-care (01) ==
LOC: 2N 12:07 → ED 12:07 → SUATTDRO 16:39 → 2N 18:44